=== PATIENT | male | born 1945 | race Caucasian/White ===

== ENCOUNTER 2019-12-28 13:15 | Inpatient (IN) | payer MEDICARE ==
[2019-12-28 20:55] LABS: Basophils # (Auto) 0.1 K/mm3 (0.0-0.1); Eosinophils # (Auto) 0.2 K/mm3 (0.0-0.4); Eosinophils % (Auto) 2.6 % (0.0-4.3); Hematocrit 44.3 % (35.5-45.6); Hemoglobin 15.3 gm/dl (11.8-15.2); Lymphocytes # (Auto) 2.1 K/mm3 (1.2-5.4); Lymphocytes % (Auto) 31.6 % (13.4-35.0); Mean Corpuscular HGB Conc 35 % (32-34); Mean Corpuscular Volume 91 fl (84-94); Monocytes # (Auto) 0.8 K/mm3 (0.0-0.8); Monocytes % (Auto) 11.7 % (0.0-7.3); Platelet Count 206 K/mm3 (140-440); Red Cell Distribution Width 14.1 % (13.2-15.2)
--- NOTE | 2019-12-28 21:20 | Consultation ---
History of Present Illness - Reason for Consult Consult date: 12/28/19 medical management Requesting physician: ANITA HUMPHRIES - History of Present Illness 74 YO Male with Cerebral Atherosclerosis, Vascular Dementia with Behavioral disturbance admitted to [facility] for Psychiatric stabilization. Consult placed by Dr. Humphries for medical management. No reported nursing events. Pt is pleasantly confused. No reports of pain. Past History Past Medical History: other Past Surgical History: No surgical history (See HPI reviewed), Other (See HPI) Social history: single. denies: smoking, alcohol abuse, IV drug use Family history: denies: no significant family history (Reviewed) Medications and Allergies Allergies Allergy/AdvReac Type Severity Reaction Status Date / Time No Known Allergies Allergy Unverified 12/28/19 13:41 Home Medications Medication Instructions Recorded Confirmed Last Taken Type B Complex W/Vitamin C 1 cap PO DAILY 12/28/19 12/31/19 Unknown History Isoniazid 300 mg PO DAILY 12/28/19 12/31/19 Unknown History Pyridoxine HCl (Vitamin B6) 100 mg PO HS 12/28/19 12/31/19 Unknown History [Vitamin B-6 200mg TAB ER] traZODone [Desyrel] 100 mg PO QHS 12/28/19 12/31/19 Unknown History Melatonin [Melatonin 5MG TAB] 5 mg PO QHS #30 tablet 01/06/20 Unknown Rx Mirtazapine [Remeron 15mg TAB] 15 mg PO QHS #30 tablet 01/06/20 Unknown Rx [place]-3 Fatty Acids/Fish Oil [Fish 2,000 mg PO BID #120 capsule 01/06/20 Unknown Rx Oil] QUEtiapine [SEROquel] 150 mg PO BID #60 tablet 01/06/20 Unknown Rx Valproic Acid [Depakene] 500 mg PO BID #60 capsule 01/06/20 Unknown Rx Active Meds: Active Medications Fish Oil (Fish Oil) 2,000 mg PO BID HANDY Fluoxetine HCl (Prozac) 10 mg PO QHS HANDY Melatonin (Melatonin) 5 mg PO QHS PRN PRN Reason: Sleep Olanzapine (Zyprexa) 5 mg PO QHS HANDY Trazodone HCl (Desyrel) 50 mg PO QHS HANDY Review of Systems ROS unobtainable: due to mental status Exam - Constitutional Vitals: Temp Pulse Resp BP Pulse Ox 98.5 F 73 18 133/76 95 12/28/19 16:00 12/28/19 16:00 12/28/19 16:00 12/28/19 16:00 12/28/19 16:00 General appearance: Present: no acute distress, well-nourished - EENT Eyes: Present: PERRL ENT: hearing intact, clear oral mucosa - Neck Neck: Present: supple, normal ROM - Respiratory Respiratory effort: normal Respiratory: bilateral: CTA - Cardiovascular Heart Sounds: Present: S1 & S2. Absent: rub, click - Extremities Extremities: pulses symmetrical, No edema Peripheral Pulses: within normal limits - Abdominal General gastrointestinal: Present: soft, non-tender, non-distended, normal bowel sounds Male genitourinary: Present: normal - Integumentary Integumentary: Present: clear, warm, dry - Musculoskeletal Musculoskeletal: gait normal, strength equal bilaterally - Neurologic Neurologic: CNII-XII intact, moves all extremities Results - Labs CBC & Chem 7: 12/28/19 20:35 12/28/19 20:35 Labs: Abnormal lab results 12/28/19 12/28/19 Range/Units 17:05 20:35 Hgb 15.3 H (11.8-15.2) gm/dl MCHC 35 H (32-34) % [place] % (Auto) 11.7 H (0.0-7.3) % POC Glucose 118 H (70-105) Assessment and Plan - Patient Problems (1) Vascular dementia with behavioral disturbance Status: Acute Plan to address problem: Verbal prompting, verbal redirection, benzodiazepine therapy as clinically indicated, supportive care. (2) Cerebral atherosclerosis Status: Acute Plan to address problem: Supportive care, continue medical management
[2019-12-28] MEDS: traZODone 50 MG TAB PO SCH (21:30)
[2019-12-28] MEDS: OMEGA-3 FATTY ACIDS/FISH OIL 1 GRAM CAP PO SCH (21:31)
[2019-12-28 21:43] LABS: Alanine Aminotransferase 43 units/L (7-56); Albumin 4.5 g/dL (3.9-5); BUN/Creatinine Ratio 22; Blood Urea Nitrogen 24 mg/dL (9-20); Calcium 9.3 mg/dL (8.4-10.2); Hemolysis Index 15
[2019-12-28] MEDS ORDERED: MELATONIN 5 MG TAB PO PRN (22:00)
[2019-12-28] MEDS ORDERED: FLUoxetine 10 MG TAB PO SCH (22:00)
--- NOTE | 2019-12-29 07:39 | History and Physical Report ---
GP History & Physical - History of Present Illness Date of admission: 12/28/19 Date of Examination: 12/29/19 Reason for Admission: Danger to self, Psychopathology interference History of Present Illness: HPI Patient is a 74-year-old male with past medical history of dementia disease due to Alzheimer's presented to [facility] emergency department due to increased behavioral disturbances while he was at a memory care facility of [facility] for about 4 to 5 months now. According to the notes it was reported that patient behavior has been worsening within the past 3 to 4 weeks but most recently patient has wandered into another patient's room and when staff try to redirect the patient patient immediately points to staff and has also been verbally aggressive towards other female residents at the same facility. Due to patient's history of dementia patient is a poor historian hence limited HPI staff also reports history of homicidal ideation towards staff at the facility PAST PSYCHIATRIC HISTORY: Diagnoses: None reported Suicide attempts or Self-harm behavior: None reported Prior psychiatric hospitalizations: None reported Substance Abuse history: None reported Previous psychiatric medications tried: Seroquel Outpatient treatment: Yes PAST MEDICAL HISTORY: Alzheimer's dementia Family Psychiatric History: None reported or documented SOCIAL HISTORY Marital Status: Living Arrangements: correction Employment Status: Retired Access to guns/weapons: None reported Education: History of Abuse: Legal History: REVIEW OF SYSTEMS ROS cannot be reliably obtained from the patient due to his confusion MENTAL STATUS EXAMINATION General Appearance and Behavior: Age appropriate, good hygiene, wearing appropriate clothes, good eye contact, cooperative polite with questioning. Cooperation: Participating Withdrawn Psychomotor Behavior: unremarkable and within normal limits Mood: Good, Affect and affective range: euphoric Thought Process: Loose associations Thought Content: Illogical, Speech: Normal volume, Regular rate and rhythm, Intellectual Functioning: Average Suicidal Ideation: Denies SI Homicidal Ideation: HI based on history Impulse Control: Impaired Insight and Judgment: Impaired Memory: impaired Attention: Normal, Distractible, Sustained attention intact, Sustained attention impaired, Divided attention intact and Divided attention impaired Orientation: Alert Assessment and Plan - Psychiatric problem (1) Vascular dementia with behavioral disturbance Current Visit: Yes Status: Acute Treatment Plan Seroquel 100mg BID Patient admitted for inpatient psychiatric evaluation, medication adjustment and close monitoring The patient's behavior, mood, sleep and appetite will be closely monitored. Patient enrolled in individual and group therapeutic sessions and encouraged to attend. Patient provided with a safe and structured environment. Patient's physical health needs will be addressed by the Hospitalist. Hospitalist Consulted Labs including CBC, CMP, Lipid profile and Hemoglobin A1C levels ordered for baseline reference Social Assessment will be completed and the Managing Principal will work with patient and family to ensure a suitable and safe disposition Medication adjustment will be made as clinically indicated Usual Wellness Advent/Preservation: - Start Trazodone 50 mg po QHS & 50 mg po QHS PRN between 10 PM & 2 AM for insomnia - Start Melatonin 5 mg po QHS to promote circadian rhythm - Start [place]-3 for brain health, reduce impulsivity, and as adjunctive treatment for mood disorder, continue upon discharge given overall benefits. - Start B1 prophylaxis with 200 mg po for 5 days The patient agreed on the treatment plan, understood the risk, benefit, alternative treatment, potential consequence of no treatment, and gave informed consent. Initial Certification Inpatient psych services: I certify that the inpatient psychiatric services are required for treatment that could reasonably be expected to improve the patient's condition. Estimated days: 7 Post hospital care: primary care provider, psychiatric provider Legal Status: Voluntary Patient Problems: Current Active Problems Cerebral atherosclerosis (Acute) Vascular dementia with behavioral disturbance (Acute) Reaction to Hospitalization: Accepting Medications and Allergies Allergies Allergy/AdvReac Type Severity Reaction Status Date / Time No Known Allergies Allergy Unverified 12/28/19 13:41 Home Medications Medication Instructions Recorded Confirmed Last Taken Type B Complex W/Vitamin C 1 cap PO DAILY 12/28/19 12/28/19 Unknown History Isoniazid 300 mg PO DAILY 12/28/19 12/28/19 Unknown History Pyridoxine HCl (Vitamin B6) 100 mg PO HS 12/28/19 12/28/19 Unknown History [Vitamin B-6 200mg TAB ER] QUEtiapine [SEROquel] 25 mg PO HS 12/28/19 12/28/19 Unknown History traZODone [Desyrel] 100 mg PO QHS 12/28/19 12/28/19 Unknown History Active Meds: Active Medications Fish Oil (Fish Oil) 2,000 mg PO BID [facility] Last Admin: 12/28/19 21:31 Dose: 2,000 mg Documented by: Fluoxetine HCl (Prozac) 10 mg PO QHS [facility] Last Admin: 12/28/19 21:32 Dose: 10 mg Documented by: Melatonin (Melatonin) 5 mg PO QHS PRN PRN Reason: Sleep Last Admin: 12/28/19 21:33 Dose: 5 mg Documented by: Olanzapine (Zyprexa) 5 mg PO QHS [facility] Last Admin: 12/28/19 21:32 Dose: 5 mg Documented by: Trazodone HCl (Desyrel) 50 mg PO QHS [facility] Last Admin: 12/28/19 21:30 Dose: 50 mg Documented by: Results - Results Labs/Vitals: Laboratory Last Values WBC 6.8 K/mm3 (4.5-11.0) 12/28/19 20:35 RBC 4.90 M/mm3 (3.65-5.03) 12/28/19 20:35 Hgb 15.3 gm/dl (11.8-15.2) H 12/28/19 20:35 Hct 44.3 % (35.5-45.6) 12/28/19 20:35 MCV 91 fl (84-94) 12/28/19 20:35 MCH 31 pg (28-32) 12/28/19 20:35 MCHC 35 % (32-34) H 12/28/19 20:35 RDW 14.1 % (13.2-15.2) 12/28/19 20:35 Plt Count 206 K/mm3 (140-440) 12/28/19 20:35 Lymph % (Auto) 31.6 % (13.4-35.0) 12/28/19 20:35 [place] % (Auto) 11.7 % (0.0-7.3) H 12/28/19 20:35 Eos % (Auto) 2.6 % (0.0-4.3) 12/28/19 20:35 Baso % (Auto) 1.0 % (0.0-1.8) 12/28/19 20:35 Lymph # (Auto) 2.1 K/mm3 (1.2-5.4) 12/28/19 20:35 [place] # (Auto) 0.8 K/mm3 (0.0-0.8) 12/28/19 20:35 Eos # (Auto) 0.2 K/mm3 (0.0-0.4) 12/28/19 20:35 Baso # (Auto) 0.1 K/mm3 (0.0-0.1) 12/28/19 20:35 Seg Neutrophils % 53.1 % (40.0-70.0) 12/28/19 20:35 Seg Neutrophils # 3.6 K/mm3 (1.8-7.7) 12/28/19 20:35 Sodium 140 mmol/L (137-145) 12/28/19 20:35 Potassium 3.7 mmol/L (3.6-5.0) 12/28/19 20:35 Chloride 103.0 mmol/L (98-107) 12/28/19 20:35 Carbon Dioxide 23 mmol/L (22-30) 12/28/19 20:35 Anion Gap 18 mmol/L 12/28/19 20:35 BUN 24 mg/dL (9-20) H 12/28/19 20:35 Creatinine 1.1 mg/dL (0.8-1.3) 12/28/19 20:35 Estimated GFR > 60 ml/min 12/28/19 20:35 BUN/Creatinine Ratio 22 % 12/28/19 20:35 Glucose 119 mg/dL (75-100) H 12/28/19 20:35 POC Glucose 118 (70-105) H 12/28/19 17:05 Calcium 9.3 mg/dL (8.4-10.2) 12/28/19 20:35 Total Bilirubin 0.70 mg/dL (0.1-1.2) 12/28/19 20:35 AST 40 units/L (5-40) 12/28/19 20:35 ALT 43 units/L (7-56) 12/28/19 20:35 Alkaline Phosphatase 65 units/L (35-129) 12/28/19 20:35 Total Protein 7.4 g/dL (6.3-8.2) 12/28/19 20:35 Albumin 4.5 g/dL (3.9-5) 12/28/19 20:35 Albumin/Globulin Ratio 1.6 % 12/28/19 20:35 TSH 3.710 mlU/mL (0.270-4.200) 12/28/19 20:35 Last Vital Signs Temp 97.9 F 12/28/19 19:36 Pulse 71 12/28/19 19:36 Resp 20 12/28/19 19:36 BP 132/70 12/28/19 19:36 Pulse Ox 94 12/28/19 19:36 Physical Examination - Constitutional Vitals: Vital Signs Temp Pulse Resp BP Pulse Ox 97.9 F 71 20 132/70 94 12/28/19 19:36 12/28/19 19:36 12/28/19 19:36 12/28/19 19:36 12/28/19 19:36 Temperature -Last 24 Hours Temperature 97.9 F Temperature 98.5 F Mental Status Exam - Vital signs Last Vital Signs Temp 97.9 F 12/28/19 19:36 Pulse 71 12/28/19 19:36 Resp 20 12/28/19 19:36 BP 132/70 12/28/19 19:36 Pulse Ox 94 12/28/19 19:36 Assessment and Plan - Psychiatric problem (1) Vascular dementia with behavioral disturbance Current Visit: Yes Status: Acute Physician Certification - Certification Statement Physician Certification Statement: This is an acknowledgement statement that FIDE RUIZ is a 74 year old M who requires inpatient psychiatric admission for treatment which could itzel sonably be expected to improve the patient's condition for Estimated period of time patient will need to remain in the hospital: [ ] Plan for post-hospital care: [ ]
[2019-12-29] MEDS: OMEGA-3 FATTY ACIDS/FISH OIL 1 GRAM CAP PO SCH ×2 (11:57→21:13)
[2019-12-29] MEDS: QUEtiapine 25 MG TAB PO SCH ×2 (11:57→21:14)
[2019-12-29 16:14] LABS: Chol/HDL Ratio 3.62 %; HDL Cholesterol 56 mg/dL (40-59); LDL Cholesterol,Direct 142 mg/dL (50-130)
[2019-12-29] MEDS: VALPROIC ACID 250 MG CAP PO SCH (21:14)
[2019-12-29] MEDS: traZODone 50 MG TAB PO SCH (21:15)
--- NOTE | 2019-12-30 07:42 | Progress Note ---
Subjective Date of service: 12/30/19 Principal diagnosis: MHE Subjective Comment: Per Felix Nurse: Last evening the patient was busy wandering the unit. He checked all the doors multiple times. Patient went into a peers room and scared his peer. Patient is resistant to redirection. He becomes angry when redirected. He was touching his peers, doors, pictures, anything hanging on the wall, and digging in the garbage. Patient would not listen and began to throw things at the tech. He wandered the unit and lay down to sleep around 2300. He slept 1 1/2 hours and awakened to wander the unit and check all the doors again. Will continue to monitor patient for safety. Psych Progress Mr Castrejon seen in consultation room, look at picture on the wall, for a few minutes he did not respond to me and when he did, he appears to be talking about knowledge, [employer] and very loose in association of his thought process Reason to continue inpatient psychiatric hospitalization: Insomnia reported, confusion is due to dementia, Seroquel increased to 150mg QHS, Remeron added for sleep, will continue to observe. REVIEW OF SYSTEMS ROS cannot be reliably obtained from the patient due to his confusion MENTAL STATUS EXAMINATION General Appearance and Behavior: Age appropriate, good hygiene, wearing appropriate clothes, good eye contact, cooperative polite with questioning. Cooperation: Participating Withdrawn Psychomotor Behavior: unremarkable and within normal limits Mood: Good, Affect and affective range: euphoric Thought Process: Loose associations Thought Content: Illogical, Speech: Normal volume, Regular rate and rhythm, Intellectual Functioning: Average Suicidal Ideation: Denies SI Homicidal Ideation: HI based on history Impulse Control: Impaired Insight and Judgment: Impaired Memory: impaired Attention: Divided attention impaired Orientation: Alert Assessment and Plan - Psychiatric problem (1) Vascular dementia with behavioral disturbance Current Visit: Yes Status: Acute Treatment Plan Medication changes, Seroquel 100mg, 150 mg QHS, Remeron 15mg QHS for insomnia and Melatonin Patient admitted for inpatient psychiatric evaluation, medication adjustment and close monitoring The patient's behavior, mood, sleep and appetite will be closely monitored. Patient enrolled in individual and group therapeutic sessions and encouraged to attend. Patient provided with a safe and structured environment. Patient's physical health needs will be addressed by the Hospitalist. Hospitalist Consulted Labs including CBC, CMP, Lipid profile and Hemoglobin A1C levels ordered for baseline reference Social Assessment will be completed and the Country Printer Apprentice will work with kristen wetzel and family to ensure a suitable and safe disposition Medication adjustment will be made as clinically indicated Usual Wellness Synagogue/Preservation: - Start Trazodone 50 mg po QHS & 50 mg po QHS PRN between 10 PM & 2 AM for insomnia - Start Melatonin 5 mg po QHS to promote circadian rhythm - Start [place]-3 for brain health, reduce impulsivity, and as adjunctive treatment for mood disorder, continue upon discharge given overall benefits. - Start B1 prophylaxis with 200 mg po for 5 days The patient agreed on the treatment plan, understood the risk, benefit, alternative treatment, potential consequence of no treatment, and gave informed consent. Initial Certification Inpatient psych services: I certify that the inpatient psychiatric services are required for treatment that could reasonably be expected to improve the patient's condition. Estimated days: 6 Post hospital care: primary care provider, psychiatric provider Legal Status: Voluntary Patient Problems: Current Active Problems Cerebral atherosclerosis (Acute) Vascular dementia with behavioral disturbance (Acute) Reaction to Hospitalization: Accepting Assessment and Plan - Patient Problems (1) Vascular dementia with behavioral disturbance Current Visit: Yes Status: Acute Medications and Allergies Allergies Allergy/AdvReac Type Severity Reaction Status Date / Time No Known Allergies Allergy Unverified 12/28/19 13:41 Home Medications Medication Instructions Recorded Confirmed Last Taken Type B Complex W/Vitamin C 1 cap PO DAILY 12/28/19 12/28/19 Unknown History Isoniazid 300 mg PO DAILY 12/28/19 12/28/19 Unknown History Pyridoxine HCl (Vitamin B6) 100 mg PO HS 12/28/19 12/28/19 Unknown History [Vitamin B-6 200mg TAB ER] QUEtiapine [SEROquel] 25 mg PO HS 12/28/19 12/28/19 Unknown History traZODone [Desyrel] 100 mg PO QHS 12/28/19 12/28/19 Unknown History Active Meds: Active Medications Fish Oil (Fish Oil) 2,000 mg PO BID [facility] Last Admin: 12/29/19 21:13 Dose: 2,000 mg Documented by: Melatonin (Melatonin) 5 mg PO QHS PRN PRN Reason: Sleep Last Admin: 12/28/19 21:33 Dose: 5 mg Documented by: Quetiapine Fumarate (Seroquel) 100 mg PO BID [facility] Last Admin: 12/29/19 21:14 Dose: 100 mg Documented by: Trazodone HCl (Desyrel) 50 mg PO QHS [facility] Last Admin: 12/29/19 21:15 Dose: 50 mg Documented by: Valproic Acid (Depakene) 250 mg PO BID [facility] Last Admin: 12/29/19 21:14 Dose: 250 mg Documented by: Results - Results Labs/Vitals: Laboratory Last Values WBC 6.8 K/mm3 (4.5-11.0) 12/28/19 20:35 RBC 4.90 M/mm3 (3.65-5.03) 12/28/19 20:35 Hgb 15.3 gm/dl (11.8-15.2) H 12/28/19 20:35 Hct 44.3 % (35.5-45.6) 12/28/19 20:35 MCV 91 fl (84-94) 12/28/19 20:35 MCH 31 pg (28-32) 12/28/19 20:35 MCHC 35 % (32-34) H 12/28/19 20:35 RDW 14.1 % (13.2-15.2) 12/28/19 20:35 Plt Count 206 K/mm3 (140-440) 12/28/19 20:35 Lymph % (Auto) 31.6 % (13.4-35.0) 12/28/19 20:35 [place] % (Auto) 11.7 % (0.0-7.3) H 12/28/19 20:35 Eos % (Auto) 2.6 % (0.0-4.3) 12/28/19 20:35 Baso % (Auto) 1.0 % (0.0-1.8) 12/28/19 20:35 Lymph # (Auto) 2.1 K/mm3 (1.2-5.4) 12/28/19 20:35 [place] # (Auto) 0.8 K/mm3 (0.0-0.8) 12/28/19 20:35 Eos # (Auto) 0.2 K/mm3 (0.0-0.4) 12/28/19 20:35 Baso # (Auto) 0.1 K/mm3 (0.0-0.1) 12/28/19 20:35 Seg Neutrophils % 53.1 % (40.0-70.0) 12/28/19 20:35 Seg Neutrophils # 3.6 K/mm3 (1.8-7.7) 12/28/19 20:35 Sodium 140 mmol/L (137-145) 12/28/19 20:35 Potassium 3.7 mmol/L (3.6-5.0) 12/28/19 20:35 Chloride 103.0 mmol/L (98-107) 12/28/19 20:35 Carbon Dioxide 23 mmol/L (22-30) 12/28/19 20:35 Anion Gap 18 mmol/L 12/28/19 20:35 BUN 24 mg/dL (9-20) H 12/28/19 20:35 Creatinine 1.1 mg/dL (0.8-1.3) 12/28/19 20:35 Estimated GFR > 60 ml/min 12/28/19 20:35 BUN/Creatinine Ratio 22 % 12/28/19 20:35 Glucose 119 mg/dL (75-100) H 12/28/19 20:35 POC Glucose 118 (70-105) H 12/28/19 17:05 Hemoglobin A1c 6.2 % (4-6) H 12/28/19 20:35 Calcium 9.3 mg/dL (8.4-10.2) 12/28/19 20:35 Total Bilirubin 0.70 mg/dL (0.1-1.2) 12/28/19 20:35 AST 40 units/L (5-40) 12/28/19 20:35 ALT 43 units/L (7-56) 12/28/19 20:35 Alkaline Phosphatase 65 units/L (35-129) 12/28/19 20:35 Total Protein 7.4 g/dL (6.3-8.2) 12/28/19 20:35 Albumin 4.5 g/dL (3.9-5) 12/28/19 20:35 Albumin/Globulin Ratio 1.6 % 12/28/19 20:35 Triglycerides 105 mg/dL (2-149) 12/28/19 20:35 Cholesterol 203 mg/dL (50-199) H 12/28/19 20:35 LDL Cholesterol Direct 142 mg/dL (50-130) H 12/28/19 20:35 HDL Cholesterol 56 mg/dL (40-59) 12/28/19 20:35 Cholesterol/HDL Ratio 3.62 % 12/28/19 20:35 TSH 3.710 mlU/mL (0.270-4.200) 12/28/19 20:35 Last Vital Signs Temp 97.5 F L 12/29/19 19:53 Pulse 63 12/29/19 19:53 Resp 20 12/29/19 19:53 BP 124/89 12/29/19 19:53 Pulse Ox 97 12/29/19 19:53
[2019-12-30] MEDS: VALPROIC ACID 250 MG CAP PO SCH ×2 (09:11→21:00)
[2019-12-30] MEDS: OMEGA-3 FATTY ACIDS/FISH OIL 1 GRAM CAP PO SCH ×2 (09:12→21:00)
[2019-12-30] MEDS ORDERED: QUEtiapine 100 MG TAB PO SCH ×3 (10:00→22:00)
[2019-12-30] MEDS: MIRTAZAPINE 15 MG TAB PO SCH (21:00)
[2019-12-30] MEDS: MELATONIN 5 MG TAB PO SCH (21:00)
[2019-12-30] MEDS ORDERED: QUEtiapine 50 MG, QUEtiapine 100 MG PO SCH (22:00)
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
[2019-12-31] MEDS ORDERED: HALOPERIDOL LACTATE 5 MG/1 ML INJ IM PRN (08:34)
[2019-12-31] MEDS ORDERED: LORazepam 2 MG/ML VIAL IM PRN (08:34)
[2019-12-31] MEDS: VALPROIC ACID 250 MG CAP PO SCH ×2 (09:25→21:20)
[2019-12-31] MEDS: QUEtiapine 100 MG TAB PO SCH ×2 (09:25→21:21)
[2019-12-31] MEDS: OMEGA-3 FATTY ACIDS/FISH OIL 1 GRAM CAP PO SCH ×2 (09:25→21:21)
[2019-12-31] MEDS: MIRTAZAPINE 15 MG TAB PO SCH (21:21)
[2019-12-31] MEDS: MELATONIN 5 MG TAB PO SCH (21:25)
--- NOTE | 2020-01-01 08:33 | Progress Note ---
Subjective Date of service: 01/01/20 Principal diagnosis: Dementia w/Behavioral Disturbance Subjective Comment: During my interview with the patient this morning, he is sitting on side of the bed. He is confused. His speech is nonsensical. The patient looks as he's been crying. He says "my slept on this side" when asked how did he sleep. The patient then started mumbling about something. His speech was incomprehensible at that time. Reason to continue inpatient psychiatric hospitalization: Behavioral disturbances reported; aggression, up and down moods, altercations REVIEW OF SYSTEMS ROS cannot be reliably obtained from the patient due to his confusion MENTAL STATUS EXAMINATION General Appearance and Behavior: Age appropriate, good hygiene, wearing appropriate clothes, fair eye contact, cooperative polite with questioning. Cooperation: Participating, Withdrawn Psychomotor Behavior: unremarkable and within normal limits Mood: okay Affect and affective range: flat Thought Process: Impaired Thought Content: Illogical, Speech: Normal volume, Regular rate and rhythm, Suicidal Ideation: Denies SI Homicidal Ideation: HI Impulse Control: Impaired Insight and Judgment: Impaired Memory: impaired Attention: Divided attention impaired Orientation: Alert Assessment and Plan (1) Dementia with Behavioral Disturbance Current Visit: Yes Status: Acute Treatment Plan Patient admitted for inpatient psychiatric evaluation, medication adjustment and close monitoring The patient's behavior, mood, sleep and appetite will be closely monitored. Patient enrolled in individual and group therapeutic sessions and encouraged to attend. Patient provided with a safe and structured environment. Patient's physical health needs will be addressed by the Hospitalist. Hospitalist Consulted Labs including CBC, CMP, Lipid profile and Hemoglobin A1C levels ordered for baseline reference Increase Depakote DR 500mg po BID Social Assessment will be completed and the Gravel Weigher will work with patient and family to ensure a suitable and safe disposition Medication adjustment will be made as clinically indicated Usual Wellness Jewish/Preservation: - Start Trazodone 50 mg po QHS & 50 mg po QHS PRN between 10 PM & 2 AM for insomnia - Start Melatonin 5 mg po QHS to promote circadian rhythm - Start [place]-3 for brain health, reduce impulsivity, and as adjunctive treatment for mood disorder, continue upon discharge given overall benefits. - Start B1 prophylaxis with 200 mg po for 5 days The patient agreed on the treatment plan, understood the risk, benefit, alternative treatment, potential consequence of no treatment, and gave informed consent. Estimated days: 4 Post hospital care: primary care provider, psychiatric provider Medications and Allergies Allergies Allergy/AdvReac Type Severity Reaction Status Date / Time No Known Allergies Allergy Unverified 12/28/19 13:41 Home Medications Medication Instructions Recorded Confirmed Last Taken Type B Complex W/Vitamin C 1 cap PO DAILY 12/28/19 12/31/19 Unknown History Isoniazid 300 mg PO DAILY 12/28/19 12/31/19 Unknown History Pyridoxine HCl (Vitamin B6) 100 mg PO HS 12/28/19 12/31/19 Unknown History [Vitamin B-6 200mg TAB ER] QUEtiapine [SEROquel] 25 mg PO HS 12/28/19 12/31/19 Unknown History traZODone [Desyrel] 100 mg PO QHS 12/28/19 12/31/19 Unknown History Active Meds: Active Medications Fish Oil (Fish Oil) 2,000 mg PO BID [facility] Last Admin: 12/31/19 21:21 Dose: 2,000 mg Documented by: Haloperidol Lactate (Haldol) 5 mg IM ONCE PRN PRN Reason: Agitation Lorazepam (Ativan) 2 mg IM Q4HR PRN PRN Reason: Agitation Melatonin (Melatonin) 5 mg PO QHS [facility] Last Admin: 12/31/19 21:25 Dose: 5 mg Documented by: Mirtazapine (Remeron) 15 mg PO QHS [facility] Last Admin: 12/31/19 21:21 Dose: 15 mg Documented by: Quetiapine Fumarate (Seroquel) 150 mg PO BID [facility] Last Admin: 12/31/19 21:21 Dose: 150 mg Documented by: Valproic Acid (Depakene) 250 mg PO BID [facility] Last Admin: 12/31/19 21:20 Dose: 250 mg Documented by: Results - Results Labs/Vitals: Laboratory Last Values WBC 6.8 K/mm3 (4.5-11.0) 12/28/19 20:35 RBC 4.90 M/mm3 (3.65-5.03) 12/28/19 20:35 Hgb 15.3 gm/dl (11.8-15.2) H 12/28/19 20:35 Hct 44.3 % (35.5-45.6) 12/28/19 20:35 MCV 91 fl (84-94) 12/28/19 20:35 MCH 31 pg (28-32) 12/28/19 20:35 MCHC 35 % (32-34) H 12/28/19 20:35 RDW 14.1 % (13.2-15.2) 12/28/19 20:35 Plt Count 206 K/mm3 (140-440) 12/28/19 20:35 Lymph % (Auto) 31.6 % (13.4-35.0) 12/28/19 20:35 [place] % (Auto) 11.7 % (0.0-7.3) H 12/28/19 20:35 Eos % (Auto) 2.6 % (0.0-4.3) 12/28/19 20:35 Baso % (Auto) 1.0 % (0.0-1.8) 12/28/19 20:35 Lymph # (Auto) 2.1 K/mm3 (1.2-5.4) 12/28/19 20:35 [place] # (Auto) 0.8 K/mm3 (0.0-0.8) 12/28/19 20:35 Eos # (Auto) 0.2 K/mm3 (0.0-0.4) 12/28/19 20:35 Baso # (Auto) 0.1 K/mm3 (0.0-0.1) 12/28/19 20:35 Seg Neutrophils % 53.1 % (40.0-70.0) 12/28/19 20:35 Seg Neutrophils # 3.6 K/mm3 (1.8-7.7) 12/28/19 20:35 Sodium 140 mmol/L (137-145) 12/28/19 20:35 Potassium 3.7 mmol/L (3.6-5.0) 12/28/19 20:35 Chloride 103.0 mmol/L (98-107) 12/28/19 20:35 Carbon Dioxide 23 mmol/L (22-30) 12/28/19 20:35 Anion Gap 18 mmol/L 12/28/19 20:35 BUN 24 mg/dL (9-20) H 12/28/19 20:35 Creatinine 1.1 mg/dL (0.8-1.3) 12/28/19 20:35 Estimated GFR > 60 ml/min 12/28/19 20:35 BUN/Creatinine Ratio 22 % 12/28/19 20:35 Glucose 119 mg/dL (75-100) H 12/28/19 20:35 POC Glucose 118 (70-105) H 12/28/19 17:05 Hemoglobin A1c 6.2 % (4-6) H 12/28/19 20:35 Calcium 9.3 mg/dL (8.4-10.2) 12/28/19 20:35 Total Bilirubin 0.70 mg/dL (0.1-1.2) 12/28/19 20:35 AST 40 units/L (5-40) 12/28/19 20:35 ALT 43 units/L (7-56) 12/28/19 20:35 Alkaline Phosphatase 65 units/L (35-129) 12/28/19 20:35 Total Protein 7.4 g/dL (6.3-8.2) 12/28/19 20:35 Albumin 4.5 g/dL (3.9-5) 12/28/19 20:35 Albumin/Globulin Ratio 1.6 % 12/28/19 20:35 Triglycerides 105 mg/dL (2-149) 12/28/19 20:35 Cholesterol 203 mg/dL (50-199) H 12/28/19 20:35 LDL Cholesterol Direct 142 mg/dL (50-130) H 12/28/19 20:35 HDL Cholesterol 56 mg/dL (40-59) 12/28/19 20:35 Cholesterol/HDL Ratio 3.62 % 12/28/19 20:35 TSH 3.710 mlU/mL (0.270-4.200) 12/28/19 20:35 Last Vital Signs Temp 98.1 F 12/31/19 22:00 Pulse 74 12/31/19 22:00 Resp 18 12/31/19 22:00 BP 118/74 12/31/19 22:00 Pulse Ox 95 12/31/19 22:00
[2020-01-01] MEDS: VALPROIC ACID 250 MG CAP PO SCH ×3 (09:30→22:16)
[2020-01-01] MEDS: QUEtiapine 100 MG TAB PO SCH ×2 (09:31→22:18)
[2020-01-01] MEDS: OMEGA-3 FATTY ACIDS/FISH OIL 1 GRAM CAP PO SCH ×2 (09:31→22:16)
[2020-01-01] MEDS: MIRTAZAPINE 15 MG TAB PO SCH (22:19)
[2020-01-01] MEDS: MELATONIN 5 MG TAB PO SCH (22:20)
[2020-01-02] MEDS: VALPROIC ACID 250 MG CAP PO SCH ×2 (11:08→21:17)
[2020-01-02] MEDS: OMEGA-3 FATTY ACIDS/FISH OIL 1 GRAM CAP PO SCH ×2 (11:09→21:16)
[2020-01-02] MEDS: QUEtiapine 100 MG TAB PO SCH ×2 (11:09→21:17)
--- NOTE | 2020-01-02 13:23 | Progress Note ---
Subjective Date of service: 01/02/20 Principal diagnosis: Dementia w/Behavioral Disturbance Subjective Comment: During my interview with the patient this morning, he is sitting on side of the bed. He is confused. His speech is nonsensical. He says "I'm okay" when asked. When asking him other questions, he just stared as me as I was speaking. Reason to continue inpatient psychiatric hospitalization: The patient has episodes of behavioral disturbances with aggression REVIEW OF SYSTEMS ROS cannot be reliably obtained from the patient due to his confusion MENTAL STATUS EXAMINATION General Appearance and Behavior: Age appropriate, good hygiene, wearing appropriate clothes, fair eye contact, cooperative polite with questioning. Cooperation: Uncooperative Psychomotor Behavior: unremarkable and within normal limits Mood: okay Affect and affective range: flat Thought Process: Impaired Thought Content: Illogical, Speech: Normal volume, Regular rate and rhythm, Suicidal Ideation: Denies SI Homicidal Ideation: HI Impulse Control: Impaired Insight and Judgment: Impaired Memory: impaired Attention: Divided attention impaired Orientation: Alert Assessment and Plan (1) Dementia with Behavioral Disturbance Current Visit: Yes Status: Acute Treatment Plan Patient admitted for inpatient psychiatric evaluation, medication adjustment and close monitoring The patient's behavior, mood, sleep and appetite will be closely monitored. Patient enrolled in individual and group therapeutic sessions and encouraged to attend. Patient provided with a safe and structured environment. Patient's physical health needs will be addressed by the Hospitalist. Hospitalist Consulted Labs including CBC, CMP, Lipid profile and Hemoglobin A1C levels ordered for baseline reference No changes today Social Assessment will be completed and the Mail Processing Associate will work with patient and family to ensure a suitable and safe disposition Medication adjustment will be made as clinically indicated Usual Wellness Zoroastrian/Preservation: - Start Trazodone 50 mg po QHS & 50 mg po QHS PRN between 10 PM & 2 AM for insomnia - Start Melatonin 5 mg po QHS to promote circadian rhythm - Start [place]-3 for brain health, reduce impulsivity, and as adjunctive treatment for mood disorder, continue upon discharge given overall benefits. - Start B1 prophylaxis with 200 mg po for 5 days The patient agreed on the treatment plan, understood the risk, benefit, alternative treatment, potential consequence of no treatment, and gave informed consent. Estimated days: 4 Post hospital care: primary care provider, psychiatric provider Medications and Allergies Allergies Allergy/AdvReac Type Severity Reaction Status Date / Time No Known Allergies Allergy Unverified 12/28/19 13:41 Home Medications Medication Instructions Recorded Confirmed Last Taken Type B Complex W/Vitamin C 1 cap PO DAILY 12/28/19 12/31/19 Unknown History Isoniazid 300 mg PO DAILY 12/28/19 12/31/19 Unknown History Pyridoxine HCl (Vitamin B6) 100 mg PO 12/28/19 12/31/19 Unknown History [Vitamin B-6 200mg TAB ER] QUEtiapine [SEROquel] 25 mg PO HS 12/28/19 12/31/19 Unknown History traZODone [Desyrel] 100 mg PO QHS 12/28/19 12/31/19 Unknown History Active Meds: Active Medications Fish Oil (Fish Oil) 2,000 mg PO BID [facility] Last Admin: 01/02/20 11:09 Dose: 2,000 mg Documented by: Haloperidol Lactate (Haldol) 5 mg IM ONCE PRN PRN Reason: Agitation Lorazepam (Ativan) 2 mg IM Q4HR PRN PRN Reason: Agitation Melatonin (Melatonin) 5 mg PO QHS [facility] Last Admin: 01/01/20 22:20 Dose: 5 mg Documented by: Mirtazapine (Remeron) 15 mg PO QHS [facility] Last Admin: 01/01/20 22:19 Dose: 15 mg Documented by: Quetiapine Fumarate (Seroquel) 150 mg PO BID [facility] Last Admin: 01/02/20 11:09 Dose: 150 mg Documented by: Valproic Acid (Depakene) 500 mg PO BID [facility] Last Admin: 01/02/20 11:08 Dose: 500 mg Documented by: Results - Results Labs/Vitals: Laboratory Last Values WBC 6.8 K/mm3 (4.5-11.0) 12/28/19 20:35 RBC 4.90 M/mm3 (3.65-5.03) 12/28/19 20:35 Hgb 15.3 gm/dl (11.8-15.2) H 12/28/19 20:35 Hct 44.3 % (35.5-45.6) 12/28/19 20:35 MCV 91 fl (84-94) 12/28/19 20:35 MCH 31 pg (28-32) 12/28/19 20:35 MCHC 35 % (32-34) H 12/28/19 20:35 RDW 14.1 % (13.2-15.2) 12/28/19 20:35 Plt Count 206 K/mm3 (140-440) 12/28/19 20:35 Lymph % (Auto) 31.6 % (13.4-35.0) 12/28/19 20:35 [place] % (Auto) 11.7 % (0.0-7.3) H 12/28/19 20:35 Eos % (Auto) 2.6 % (0.0-4.3) 12/28/19 20:35 Baso % (Auto) 1.0 % (0.0-1.8) 12/28/19 20:35 Lymph # (Auto) 2.1 K/mm3 (1.2-5.4) 12/28/19 20:35 [place] # (Auto) 0.8 K/mm3 (0.0-0.8) 12/28/19 20:35 Eos # (Auto) 0.2 K/mm3 (0.0-0.4) 12/28/19 20:35 Baso # (Auto) 0.1 K/mm3 (0.0-0.1) 12/28/19 20:35 Seg Neutrophils % 53.1 % (40.0-70.0) 12/28/19 20:35 Seg Neutrophils # 3.6 K/mm3 (1.8-7.7) 12/28/19 20:35 Sodium 140 mmol/L (137-145) 12/28/19 20:35 Potassium 3.7 mmol/L (3.6-5.0) 12/28/19 20:35 Chloride 103.0 mmol/L (98-107) 12/28/19 20:35 Carbon Dioxide 23 mmol/L (22-30) 12/28/19 20:35 Anion Gap 18 mmol/L 12/28/19 20:35 BUN 24 mg/dL (9-20) H 12/28/19 20:35 Creatinine 1.1 mg/dL (0.8-1.3) 12/28/19 20:35 Estimated GFR > 60 ml/min 12/28/19 20:35 BUN/Creatinine Ratio 22 % 12/28/19 20:35 Glucose 119 mg/dL (75-100) H 12/28/19 20:35 POC Glucose 118 (70-105) H 12/28/19 17:05 Hemoglobin A1c 6.2 % (4-6) H 12/28/19 20:35 Calcium 9.3 mg/dL (8.4-10.2) 12/28/19 20:35 Total Bilirubin 0.70 mg/dL (0.1-1.2) 12/28/19 20:35 AST 40 units/L (5-40) 12/28/19 20:35 ALT 43 units/L (7-56) 12/28/19 20:35 Alkaline Phosphatase 65 units/L (35-129) 12/28/19 20:35 Total Protein 7.4 g/dL (6.3-8.2) 12/28/19 20:35 Albumin 4.5 g/dL (3.9-5) 12/28/19 20:35 Albumin/Globulin Ratio 1.6 % 12/28/19 20:35 Triglycerides 105 mg/dL (2-149) 12/28/19 20:35 Cholesterol 203 mg/dL (50-199) H 12/28/19 20:35 LDL Cholesterol Direct 142 mg/dL (50-130) H 12/28/19 20:35 HDL Cholesterol 56 mg/dL (40-59) 12/28/19 20:35 Cholesterol/HDL Ratio 3.62 % 12/28/19 20:35 TSH 3.710 mlU/mL (0.270-4.200) 12/28/19 20:35 Last Vital Signs Temp 98.6 F 01/01/20 22:00 Pulse 89 01/01/20 22:00 Resp 20 01/01/20 22:00 BP 132/82 01/01/20 22:00 Pulse Ox 96 01/01/20 22:00
[2020-01-02] MEDS: MELATONIN 5 MG TAB PO SCH (21:18)
[2020-01-02] MEDS: MIRTAZAPINE 15 MG TAB PO SCH (21:18)
--- NOTE | 2020-01-03 11:59 | Progress Note ---
Subjective Date of service: 01/03/20 Principal diagnosis: Dementia w/Behavioral Disturbance Subjective Comment: During my interview with the patient this morning, he is sitting on side of the bed. He is confused. He says he is "better." He doesn't answer when asking about hallucinations. But when asked about SI/HI, he states "I don't want to hurt nobody." Reason to continue inpatient psychiatric hospitalization: The patient is improving, has episodes of behavioral disturbances with aggression. Will continue to treat and observe for effectiveness of medication. REVIEW OF SYSTEMS ROS cannot be reliably obtained from the patient due to his confusion MENTAL STATUS EXAMINATION General Appearance and Behavior: Age appropriate, good hygiene, wearing appropriate clothes, fair eye contact, cooperative polite with questioning. Cooperation: Uncooperative Psychomotor Behavior: unremarkable and within normal limits Mood: better Affect and affective range: flat Thought Process: Impaired Thought Content: Illogical, Speech: Normal volume, Regular rate and rhythm, Suicidal Ideation: Denies SI Homicidal Ideation: HI Impulse Control: Impaired Insight and Judgment: Impaired Memory: impaired Attention: Divided attention impaired Orientation: Alert Assessment and Plan (1) Dementia with Behavioral Disturbance Current Visit: Yes Status: Acute Treatment Plan Patient admitted for inpatient psychiatric evaluation, medication adjustment and close monitoring The patient's behavior, mood, sleep and appetite will be closely monitored. Patient enrolled in individual and group therapeutic sessions and encouraged to attend. Patient provided with a safe and structured environment. Patient's physical health needs will be addressed by the Hospitalist. Hospitalist Consulted Labs including CBC, CMP, Lipid profile and Hemoglobin A1C levels ordered for baseline reference Valproate level 01/04/20 Social Assessment will be completed and the Financial Advocate will work with patient and family to ensure a suitable and safe disposition Medication adjustment will be made as clinically indicated No changes today Usual Wellness Pentecostal/Preservation: - Start Trazodone 50 mg po QHS & 50 mg po QHS PRN between 10 PM & 2 AM for insomnia - Start Melatonin 5 mg po QHS to promote circadian rhythm - Start [place]-3 for brain health, reduce impulsivity, and as adjunctive treatment for mood disorder, continue upon discharge given overall benefits. - Start B1 prophylaxis with 200 mg po for 5 days The patient agreed on the treatment plan, understood the risk, benefit, alternative treatment, potential consequence of no treatment, and gave informed consent. Estimated days: 4 Post hospital care: primary care provider, psychiatric provider Medications and Allergies Allergies Allergy/AdvReac Type Severity Reaction Status Date / Time No Known Allergies Allergy Unverified 12/28/19 13:41 Home Medications Medication Instructions Recorded Confirmed Last Taken Type B Complex W/Vitamin C 1 cap PO DAILY 12/28/19 12/31/19 Unknown History Isoniazid 300 mg PO DAILY 12/28/19 12/31/19 Unknown History Pyridoxine HCl (Vitamin B6) 100 mg PO HS 12/28/19 12/31/19 Unknown History [Vitamin B-6 200mg TAB ER] QUEtiapine [SEROquel] 25 mg PO HS 12/28/19 12/31/19 Unknown History traZODone [Desyrel] 100 mg PO QHS 12/28/19 12/31/19 Unknown History Active Meds: Active Medications Fish Oil (Fish Oil) 2,000 mg PO BID [facility] Last Admin: 01/02/20 21:16 Dose: 2,000 mg Documented by: Haloperidol Lactate (Haldol) 5 mg IM ONCE PRN PRN Reason: Agitation Lorazepam (Ativan) 2 mg IM Q4HR PRN PRN Reason: Agitation Melatonin (Melatonin) 5 mg PO QHS [facility] Last Admin: 01/02/20 21:18 Dose: 5 mg Documented by: Mirtazapine (Remeron) 15 mg PO QHS [facility] Last Admin: 01/02/20 21:18 Dose: 15 mg Documented by: Quetiapine Fumarate (Seroquel) 150 mg PO BID [facility] Last Admin: 01/02/20 21:17 Dose: 150 mg Documented by: Valproic Acid (Depakene) 500 mg PO BID [facility] Last Admin: 01/02/20 21:17 Dose: 500 mg Documented by: Results - Results Labs/Vitals: Laboratory Last Values WBC 6.8 K/mm3 (4.5-11.0) 12/28/19 20:35 RBC 4.90 M/mm3 (3.65-5.03) 12/28/19 20:35 Hgb 15.3 gm/dl (11.8-15.2) H 12/28/19 20:35 Hct 44.3 % (35.5-45.6) 12/28/19 20:35 MCV 91 fl (84-94) 12/28/19 20:35 MCH 31 pg (28-32) 12/28/19 20:35 MCHC 35 % (32-34) H 12/28/19 20:35 RDW 14.1 % (13.2-15.2) 12/28/19 20:35 Plt Count 206 K/mm3 (140-440) 12/28/19 20:35 Lymph % (Auto) 31.6 % (13.4-35.0) 12/28/19 20:35 [place] % (Auto) 11.7 % (0.0-7.3) H 12/28/19 20:35 Eos % (Auto) 2.6 % (0.0-4.3) 12/28/19 20:35 Baso % (Auto) 1.0 % (0.0-1.8) 12/28/19 20:35 Lymph # (Auto) 2.1 K/mm3 (1.2-5.4) 12/28/19 20:35 [place] # (Auto) 0.8 K/mm3 (0.0-0.8) 12/28/19 20:35 Eos # (Auto) 0.2 K/mm3 (0.0-0.4) 12/28/19 20:35 Baso # (Auto) 0.1 K/mm3 (0.0-0.1) 12/28/19 20:35 Seg Neutrophils % 53.1 % (40.0-70.0) 12/28/19 20:35 Seg Neutrophils # 3.6 K/mm3 (1.8-7.7) 12/28/19 20:35 Sodium 140 mmol/L (137-145) 12/28/19 20:35 Potassium 3.7 mmol/L (3.6-5.0) 12/28/19 20:35 Chloride 103.0 mmol/L (98-107) 12/28/19 20:35 Carbon Dioxide 23 mmol/L (22-30) 12/28/19 20:35 Anion Gap 18 mmol/L 12/28/19 20:35 BUN 24 mg/dL (9-20) H 12/28/19 20:35 Creatinine 1.1 mg/dL (0.8-1.3) 12/28/19 20:35 Estimated GFR > 60 ml/min 12/28/19 20:35 BUN/Creatinine Ratio 22 % 12/28/19 20:35 Glucose 119 mg/dL (75-100) H 12/28/19 20:35 POC Glucose 118 (70-105) H 12/28/19 17:05 Hemoglobin A1c 6.2 % (4-6) H 12/28/19 20:35 Calcium 9.3 mg/dL (8.4-10.2) 12/28/19 20:35 Total Bilirubin 0.70 mg/dL (0.1-1.2) 12/28/19 20:35 AST 40 units/L (5-40) 12/28/19 20:35 ALT 43 units/L (7-56) 12/28/19 20:35 Alkaline Phosphatase 65 units/L (35-129) 12/28/19 20:35 Total Protein 7.4 g/dL (6.3-8.2) 12/28/19 20:35 Albumin 4.5 g/dL (3.9-5) 12/28/19 20:35 Albumin/Globulin Ratio 1.6 % 12/28/19 20:35 Triglycerides 105 mg/dL (2-149) 12/28/19 20:35 Cholesterol 203 mg/dL (50-199) H 12/28/19 20:35 LDL Cholesterol Direct 142 mg/dL (50-130) H 12/28/19 20:35 HDL Cholesterol 56 mg/dL (40-59) 12/28/19 20:35 Cholesterol/HDL Ratio 3.62 % 12/28/19 20:35 TSH 3.710 mlU/mL (0.270-4.200) 12/28/19 20:35 Last Vital Signs Temp 97.7 F 01/02/20 20:05 Pulse 87 01/02/20 20:05 Resp 16 01/02/20 20:05 BP 130/78 01/02/20 20:05 Pulse Ox 94 01/02/20 20:05
[2020-01-03] MEDS: QUEtiapine 100 MG TAB PO SCH ×2 (12:44→21:08)
[2020-01-03] MEDS: OMEGA-3 FATTY ACIDS/FISH OIL 1 GRAM CAP PO SCH ×2 (12:45→21:08)
[2020-01-03] MEDS: VALPROIC ACID 250 MG CAP PO SCH ×2 (12:46→21:08)
[2020-01-03] MEDS: MELATONIN 5 MG TAB PO SCH (21:08)
[2020-01-03] MEDS: MIRTAZAPINE 15 MG TAB PO SCH (21:08)
--- NOTE | 2020-01-04 09:01 | Progress Note ---
Subjective Date of service: 01/04/20 Principal diagnosis: Dementia w/Behavioral Disturbance Subjective Comment: During my interview with the patient this morning, he is lying in bed. He is staring, and nonsensical. When calling his name he states "it's just a name." When asking the patient how he was feeling, he replies "not sure." He is pointing in the air. When asked if he slept well, he says "I've been sleeping most of the time." When asking the patient about any hallucinations or thoughts of SI/HI. He just looks at me with a blank stare. Reason to continue inpatient psychiatric hospitalization: The patient is improving. Valproate level ordered today, once resulted will adjust depakote based on level. Will continue to treat and observe for effectiveness of medication. REVIEW OF SYSTEMS ROS cannot be reliably obtained from the patient due to his confusion MENTAL STATUS EXAMINATION General Appearance and Behavior: Age appropriate, good hygiene, wearing appropriate clothes, fair eye contact, cooperative polite with questioning. Cooperation: Uncooperative Psychomotor Behavior: unremarkable and within normal limits Mood: better Affect and affective range: flat Thought Process: Impaired Thought Content: Illogical, Speech: Normal volume, Regular rate and rhythm, Suicidal Ideation: Denies SI Homicidal Ideation: HI Impulse Control: Impaired Insight and Judgment: Impaired Memory: impaired Attention: Divided attention impaired Orientation: Alert Assessment and Plan (1) Dementia with Behavioral Disturbance Current Visit: Yes Status: Acute Treatment Plan Patient admitted for inpatient psychiatric evaluation, medication adjustment and close monitoring The patient's behavior, mood, sleep and appetite will be closely monitored. Patient enrolled in individual and group therapeutic sessions and encouraged to attend. Patient provided with a safe and structured environment. Patient's physical health needs will be addressed by the Hospitalist. Hospitalist Consulted Labs including CBC, CMP, Lipid profile and Hemoglobin A1C levels ordered for baseline reference Valproate level 01/04/20 Social Assessment will be completed and the Workforce Planning Analyst will work with patient and family to ensure a suitable and safe disposition Medication adjustment will be made as clinically indicated Usual Wellness Mu-Ism/Preservation: - Start Trazodone 50 mg po QHS & 50 mg po QHS PRN between 10 PM & 2 AM for insomnia - Start Melatonin 5 mg po QHS to promote circadian rhythm - Start [place]-3 for brain health, reduce impulsivity, and as adjunctive treatment for mood disorder, continue upon discharge given overall benefits. - Start B1 prophylaxis with 200 mg po for 5 days The patient agreed on the treatment plan, understood the risk, benefit, alternative treatment, potential consequence of no treatment, and gave informed consent. Estimated days: 2 Post hospital care: primary care provider, psychiatric provider Medications and Allergies Allergies Allergy/AdvReac Type Severity Reaction Status Date / Time No Known Allergies Allergy Unverified 12/28/19 13:41 Home Medications Medication Instructions Recorded Confirmed Last Taken Type B Complex W/Vitamin C 1 cap PO DAILY 12/28/19 12/31/19 Unknown History Isoniazid 300 mg PO DAILY 12/28/19 12/31/19 Unknown History Pyridoxine HCl (Vitamin B6) 100 mg PO HS 12/28/19 12/31/19 Unknown History [Vitamin B-6 200mg TAB ER] QUEtiapine [SEROquel] 25 mg PO HS 12/28/19 12/31/19 Unknown History traZODone [Desyrel] 100 mg PO QHS 12/28/19 12/31/19 Unknown History Active Meds: Active Medications Fish Oil (Fish Oil) 2,000 mg PO BID [facility] Last Admin: 01/03/20 21:08 Dose: 2,000 mg Documented by: Haloperidol Lactate (Haldol) 5 mg IM ONCE PRN PRN Reason: Agitation Lorazepam (Ativan) 2 mg IM Q4HR PRN PRN Reason: Agitation Melatonin (Melatonin) 5 mg PO QHS [facility] Last Admin: 01/03/20 21:08 Dose: 5 mg Documented by: Mirtazapine (Remeron) 15 mg PO QHS [facility] Last Admin: 01/03/20 21:08 Dose: 15 mg Documented by: Quetiapine Fumarate (Seroquel) 150 mg PO BID [facility] Last Admin: 01/03/20 21:08 Dose: 150 mg Documented by: Valproic Acid (Depakene) 500 mg PO BID [facility] Last Admin: 01/03/20 21:08 Dose: 500 mg Documented by: Results - Results Labs/Vitals: Laboratory Last Values WBC 6.8 K/mm3 (4.5-11.0) 12/28/19 20:35 RBC 4.90 M/mm3 (3.65-5.03) 12/28/19 20:35 Hgb 15.3 gm/dl (11.8-15.2) H 12/28/19 20:35 Hct 44.3 % (35.5-45.6) 12/28/19 20:35 MCV 91 fl (84-94) 12/28/19 20:35 MCH 31 pg (28-32) 12/28/19 20:35 MCHC 35 % (32-34) H 12/28/19 20:35 RDW 14.1 % (13.2-15.2) 12/28/19 20:35 Plt Count 206 K/mm3 (140-440) 12/28/19 20:35 Lymph % (Auto) 31.6 % (13.4-35.0) 12/28/19 20:35 [place] % (Auto) 11.7 % (0.0-7.3) H 12/28/19 20:35 Eos % (Auto) 2.6 % (0.0-4.3) 12/28/19 20:35 Baso % (Auto) 1.0 % (0.0-1.8) 12/28/19 20:35 Lymph # (Auto) 2.1 K/mm3 (1.2-5.4) 12/28/19 20:35 [place] # (Auto) 0.8 K/mm3 (0.0-0.8) 12/28/19 20:35 Eos # (Auto) 0.2 K/mm3 (0.0-0.4) 12/28/19 20:35 Baso # (Auto) 0.1 K/mm3 (0.0-0.1) 12/28/19 20:35 Seg Neutrophils % 53.1 % (40.0-70.0) 12/28/19 20:35 Seg Neutrophils # 3.6 K/mm3 (1.8-7.7) 12/28/19 20:35 Sodium 140 mmol/L (137-145) 12/28/19 20:35 Potassium 3.7 mmol/L (3.6-5.0) 12/28/19 20:35 Chloride 103.0 mmol/L (98-107) 12/28/19 20:35 Carbon Dioxide 23 mmol/L (22-30) 12/28/19 20:35 Anion Gap 18 mmol/L 12/28/19 20:35 BUN 24 mg/dL (9-20) H 12/28/19 20:35 Creatinine 1.1 mg/dL (0.8-1.3) 12/28/19 20:35 Estimated GFR > 60 ml/min 12/28/19 20:35 BUN/Creatinine Ratio 22 % 12/28/19 20:35 Glucose 119 mg/dL (75-100) H 12/28/19 20:35 POC Glucose 118 (70-105) H 12/28/19 17:05 Hemoglobin A1c 6.2 % (4-6) H 12/28/19 20:35 Calcium 9.3 mg/dL (8.4-10.2) 12/28/19 20:35 Total Bilirubin 0.70 mg/dL (0.1-1.2) 12/28/19 20:35 AST 40 units/L (5-40) 12/28/19 20:35 ALT 43 units/L (7-56) 12/28/19 20:35 Alkaline Phosphatase 65 units/L (35-129) 12/28/19 20:35 Total Protein 7.4 g/dL (6.3-8.2) 12/28/19 20:35 Albumin 4.5 g/dL (3.9-5) 12/28/19 20:35 Albumin/Globulin Ratio 1.6 % 12/28/19 20:35 Triglycerides 105 mg/dL (2-149) 12/28/19 20:35 Cholesterol 203 mg/dL (50-199) H 12/28/19 20:35 LDL Cholesterol Direct 142 mg/dL (50-130) H 12/28/19 20:35 HDL Cholesterol 56 mg/dL (40-59) 12/28/19 20:35 Cholesterol/HDL Ratio 3.62 % 12/28/19 20:35 TSH 3.710 mlU/mL (0.270-4.200) 12/28/19 20:35 Last Vital Signs Temp 98.7 F 01/04/20 07:30 Pulse 51 L 01/04/20 07:30 Resp 18 01/04/20 07:30 BP 127/73 01/04/20 07:30 Pulse Ox 96 01/04/20 07:30
[2020-01-04] MEDS: QUEtiapine 100 MG TAB PO SCH ×2 (09:56→22:20)
[2020-01-04] MEDS: VALPROIC ACID 250 MG CAP PO SCH ×2 (09:57→22:20)
[2020-01-04] MEDS: OMEGA-3 FATTY ACIDS/FISH OIL 1 GRAM CAP PO SCH ×2 (09:57→22:20)
[2020-01-04] MEDS: MELATONIN 5 MG TAB PO SCH (22:19)
[2020-01-04] MEDS: MIRTAZAPINE 15 MG TAB PO SCH (22:21)
[2020-01-05] MEDS ORDERED: VALPROIC ACID 250 MG CAP PO ONE (09:59)
[2020-01-05] MEDS ORDERED: OMEGA-3 FATTY ACIDS/FISH OIL 1 GRAM CAP PO ONE (09:59)
[2020-01-05] MEDS ORDERED: QUEtiapine 100 MG TAB ONE (09:59)
[2020-01-05] MEDS: OMEGA-3 FATTY ACIDS/FISH OIL 1 GRAM CAP PO SCH ×2 (10:07→21:10)
[2020-01-05] MEDS: QUEtiapine 100 MG TAB PO SCH ×2 (10:08→21:10)
--- NOTE | 2020-01-05 18:25 | Progress Note ---
Subjective Date of service: 01/05/20 Principal diagnosis: Dementia w/Behavioral Disturbance Subjective Comment: During my interview with the patient this morning, he is lying in bed. He is confused. He says he's "doing okay, just tired." He denies SI/HI. When asked about hallucinations, the patient starts talking about his " is asleep.) Reason to continue inpatient psychiatric hospitalization: The patient is improving. Valproate level ordered today, once resulted will adjust depakote based on level. Will continue to treat and observe for effectiveness of medication. REVIEW OF SYSTEMS ROS cannot be reliably obtained from the patient due to his confusion MENTAL STATUS EXAMINATION General Appearance and Behavior: Age appropriate, good hygiene, wearing appropriate clothes, fair eye contact, cooperative polite with questioning. Psychomotor Behavior: unremarkable and within normal limits Mood: "okay, just tired" Affect and affective range: Congruent with stated mood Thought Process: Impaired Thought Content: Illogical Speech: Normal volume, Regular rate and rhythm, Suicidal Ideation: Denies SI Homicidal Ideation: HI Impulse Control: Impaired Insight and Judgment: Impaired Memory: impaired Attention: Divided attention impaired Orientation: Alert Assessment and Plan (1) Dementia with Behavioral Disturbance Current Visit: Yes Status: Acute Treatment Plan Patient admitted for inpatient psychiatric evaluation, medication adjustment and close monitoring The patient's behavior, mood, sleep and appetite will be closely monitored. Patient enrolled in individual and group therapeutic sessions and encouraged to attend. Patient provided with a safe and structured environment. Patient's physical health needs will be addressed by the Hospitalist. Hospitalist Consulted Labs including CBC, CMP, Lipid profile and Hemoglobin A1C levels ordered for baseline reference Valproate level 52.2 Social Assessment will be completed and the Supervisor Network Control Operators will work with patient and family to ensure a suitable and safe disposition Medication adjustment will be made as clinically indicated No medicatioin changes Usual Wellness Islam/Preservation: - Start Trazodone 50 mg po QHS & 50 mg po QHS PRN between 10 PM & 2 AM for insomnia - Start Melatonin 5 mg po QHS to promote circadian rhythm - Start [place]-3 for brain health, reduce impulsivity, and as adjunctive treatment for mood disorder, continue upon discharge given overall benefits. - Start B1 prophylaxis with 200 mg po for 5 days The patient agreed on the treatment plan, understood the risk, benefit, alternative treatment, potential consequence of no treatment, and gave informed consent. Estimated days: 2 Post hospital care: primary care provider, psychiatric provider Medications and Allergies Allergies Allergy/AdvReac Type Severity Reaction Status Date / Time No Known Allergies Allergy Unverified 12/28/19 13:41 Home Medications Medication Instructions Recorded Confirmed Last Taken Type B Complex W/Vitamin C 1 cap PO DAILY 12/28/19 12/31/19 Unknown History Isoniazid 300 mg PO DAILY 12/28/19 12/31/19 Unknown History Pyridoxine HCl (Vitamin B6) 100 mg PO HS 12/28/19 12/31/19 Unknown History [Vitamin B-6 200mg TAB ER] QUEtiapine [SEROquel] 25 mg PO HS 12/28/19 12/31/19 Unknown History traZODone [Desyrel] 100 mg PO QHS 12/28/19 12/31/19 Unknown History Active Meds: Active Medications Fish Oil (Fish Oil) 2,000 mg PO BID [facility] Last Admin: 01/04/20 22:20 Dose: 2,000 mg Documented by: Haloperidol Lactate (Haldol) 5 mg IM ONCE PRN PRN Reason: Agitation Lorazepam (Ativan) 2 mg IM Q4HR PRN PRN Reason: Agitation Melatonin (Melatonin) 5 mg PO QHS [facility] Last Admin: 01/04/20 22:19 Dose: 5 mg Documented by: Mirtazapine (Remeron) 15 mg PO QHS [facility] Last Admin: 01/04/20 22:21 Dose: 15 mg Documented by: Quetiapine Fumarate (Seroquel) 150 mg PO BID [facility] Last Admin: 01/04/20 22:20 Dose: 150 mg Documented by: Valproic Acid (Depakene) 500 mg PO BID [facility] Last Admin: 01/04/20 22:20 Dose: 500 mg Documented by: Results - Results Labs/Vitals: Laboratory Last Values WBC 6.8 K/mm3 (4.5-11.0) 12/28/19 20:35 RBC 4.90 M/mm3 (3.65-5.03) 12/28/19 20:35 Hgb 15.3 gm/dl (11.8-15.2) H 12/28/19 20:35 Hct 44.3 % (35.5-45.6) 12/28/19 20:35 MCV 91 fl (84-94) 12/28/19 20:35 MCH 31 pg (28-32) 12/28/19 20:35 MCHC 35 % (32-34) H 12/28/19 20:35 RDW 14.1 % (13.2-15.2) 12/28/19 20:35 Plt Count 206 K/mm3 (140-440) 12/28/19 20:35 Lymph % (Auto) 31.6 % (13.4-35.0) 12/28/19 20:35 [place] % (Auto) 11.7 % (0.0-7.3) H 12/28/19 20:35 Eos % (Auto) 2.6 % (0.0-4.3) 12/28/19 20:35 Baso % (Auto) 1.0 % (0.0-1.8) 12/28/19 20:35 Lymph # (Auto) 2.1 K/mm3 (1.2-5.4) 12/28/19 20:35 [place] # (Auto) 0.8 K/mm3 (0.0-0.8) 12/28/19 20:35 Eos # (Auto) 0.2 K/mm3 (0.0-0.4) 12/28/19 20:35 Baso # (Auto) 0.1 K/mm3 (0.0-0.1) 12/28/19 20:35 Seg Neutrophils % 53.1 % (40.0-70.0) 12/28/19 20:35 Seg Neutrophils # 3.6 K/mm3 (1.8-7.7) 12/28/19 20:35 Sodium 140 mmol/L (137-145) 12/28/19 20:35 Potassium 3.7 mmol/L (3.6-5.0) 12/28/19 20:35 Chloride 103.0 mmol/L (98-107) 12/28/19 20:35 Carbon Dioxide 23 mmol/L (22-30) 12/28/19 20:35 Anion Gap 18 mmol/L 12/28/19 20:35 BUN 24 mg/dL (9-20) H 12/28/19 20:35 Creatinine 1.1 mg/dL (0.8-1.3) 12/28/19 20:35 Estimated GFR > 60 ml/min 12/28/19 20:35 BUN/Creatinine Ratio 22 % 12/28/19 20:35 Glucose 119 mg/dL (75-100) H 12/28/19 20:35 POC Glucose 118 (70-105) H 12/28/19 17:05 Hemoglobin A1c 6.2 % (4-6) H 12/28/19 20:35 Calcium 9.3 mg/dL (8.4-10.2) 12/28/19 20:35 Total Bilirubin 0.70 mg/dL (0.1-1.2) 12/28/19 20:35 AST 40 units/L (5-40) 12/28/19 20:35 ALT 43 units/L (7-56) 12/28/19 20:35 Alkaline Phosphatase 65 units/L (35-129) 12/28/19 20:35 Total Protein 7.4 g/dL (6.3-8.2) 12/28/19 20:35 Albumin 4.5 g/dL (3.9-5) 12/28/19 20:35 Albumin/Globulin Ratio 1.6 % 12/28/19 20:35 Triglycerides 105 mg/dL (2-149) 12/28/19 20:35 Cholesterol 203 mg/dL (50-199) H 12/28/19 20:35 LDL Cholesterol Direct 142 mg/dL (50-130) H 12/28/19 20:35 HDL Cholesterol 56 mg/dL (40-59) 12/28/19 20:35 Cholesterol/HDL Ratio 3.62 % 12/28/19 20:35 TSH 3.710 mlU/mL (0.270-4.200) 12/28/19 20:35 Valproic Acid 52.2 ug/mL (50-100) 01/04/20 09:06 Last Vital Signs Temp 97.3 F L 01/04/20 19:32 Pulse 91 H 01/04/20 19:32 Resp 20 01/04/20 19:32 BP 124/80 01/04/20 19:32 Pulse Ox 95 01/04/20 19:32
[2020-01-05] MEDS: VALPROIC ACID 250 MG CAP PO SCH ×2 (20:50→21:13)
[2020-01-05] MEDS: MELATONIN 5 MG TAB PO SCH (21:10)
[2020-01-05] MEDS: MIRTAZAPINE 15 MG TAB PO SCH (21:10)
[2020-01-05 22:14] VITALS: BP 131/85
--- NOTE | 2020-01-06 09:23 | Discharge Summary ---
Providers - Providers Date of Admission: 12/28/19 16:42 Date of discharge: 01/06/20 Attending physician: ANITA HUMPHRIES MD 12/28/19 13:37 Consult to Physician [CONS] Routine Comment: Consulting Provider: DAYTON POWELL Physician Instructions: Reason For Exam: Medical Management Primary care physician: DUMPER Hospitalization Reason for admission: behavioral disturbances Admitting Diagnosis: F02.81 - DEMENTIA IN OTH DISEASES CLASSD ELSWHR W BEHAVIORAL DISTURB Condition: Stable Hospital course: The patient was provided inpatient psychiatric treatment with safe and supportive care, medication adjustment, adverse effect monitoring, medical evaluations, medical treatments, assessment and psycho-education. The patient's mood, cognition, behavior, moral support are improved and stabilized. St the time of discharge, the patient had no endangering behavior and no debilitating adverse effects. The patient agreed on potential consequences of no treatment and gave informed consent. Disposition: - TO HOME OR SELFCARE Time spent for discharge: 40 Allergies/Adverse Reactions: Allergies No Known Allergies Allergy (Unverified 12/28/19 13:41) Vital Signs: Last Vital Signs Temp 97.8 F 01/05/20 20:07 Pulse 87 01/05/20 20:07 Resp 20 01/05/20 20:07 BP 131/85 01/05/20 20:07 Pulse Ox 97 01/05/20 22:00 Last Lab: Laboratory Last Values WBC 6.8 K/mm3 (4.5-11.0) 12/28/19 20:35 RBC 4.90 M/mm3 (3.65-5.03) 12/28/19 20:35 Hgb 15.3 gm/dl (11.8-15.2) H 12/28/19 20:35 Hct 44.3 % (35.5-45.6) 12/28/19 20:35 MCV 91 fl (84-94) 12/28/19 20:35 MCH 31 pg (28-32) 12/28/19 20:35 MCHC 35 % (32-34) H 12/28/19 20:35 RDW 14.1 % (13.2-15.2) 12/28/19 20:35 Plt Count 206 K/mm3 (140-440) 12/28/19 20:35 Lymph % (Auto) 31.6 % (13.4-35.0) 12/28/19 20:35 [place] % (Auto) 11.7 % (0.0-7.3) H 12/28/19 20:35 Eos % (Auto) 2.6 % (0.0-4.3) 12/28/19 20:35 Baso % (Auto) 1.0 % (0.0-1.8) 12/28/19 20:35 Lymph # (Auto) 2.1 K/mm3 (1.2-5.4) 12/28/19 20:35 [place] # (Auto) 0.8 K/mm3 (0.0-0.8) 12/28/19 20:35 Eos # (Auto) 0.2 K/mm3 (0.0-0.4) 12/28/19 20:35 Baso # (Auto) 0.1 K/mm3 (0.0-0.1) 12/28/19 20:35 Seg Neutrophils % 53.1 % (40.0-70.0) 12/28/19 20:35 Seg Neutrophils # 3.6 K/mm3 (1.8-7.7) 12/28/19 20:35 Sodium 140 mmol/L (137-145) 12/28/19 20:35 Potassium 3.7 mmol/L (3.6-5.0) 12/28/19 20:35 Chloride 103.0 mmol/L (98-107) 12/28/19 20:35 Carbon Dioxide 23 mmol/L (22-30) 12/28/19 20:35 Anion Gap 18 mmol/L 12/28/19 20:35 BUN 24 mg/dL (9-20) H 12/28/19 20:35 Creatinine 1.1 mg/dL (0.8-1.3) 12/28/19 20:35 Estimated GFR > 60 ml/min 12/28/19 20:35 BUN/Creatinine Ratio 22 % 12/28/19 20:35 Glucose 119 mg/dL (75-100) H 12/28/19 20:35 POC Glucose 118 (70-105) H 12/28/19 17:05 Hemoglobin A1c 6.2 % (4-6) H 12/28/19 20:35 Calcium 9.3 mg/dL (8.4-10.2) 12/28/19 20:35 Total Bilirubin 0.70 mg/dL (0.1-1.2) 12/28/19 20:35 AST 40 units/L (5-40) 12/28/19 20:35 ALT 43 units/L (7-56) 12/28/19 20:35 Alkaline Phosphatase 65 units/L (35-129) 12/28/19 20:35 Total Protein 7.4 g/dL (6.3-8.2) 12/28/19 20:35 Albumin 4.5 g/dL (3.9-5) 12/28/19 20:35 Albumin/Globulin Ratio 1.6 % 12/28/19 20:35 Triglycerides 105 mg/dL (2-149) 12/28/19 20:35 Cholesterol 203 mg/dL (50-199) H 12/28/19 20:35 LDL Cholesterol Direct 142 mg/dL (50-130) H 12/28/19 20:35 HDL Cholesterol 56 mg/dL (40-59) 12/28/19 20:35 Cholesterol/HDL Ratio 3.62 % 12/28/19 20:35 TSH 3.710 mlU/mL (0.270-4.200) 12/28/19 20:35 Valproic Acid 52.2 ug/mL (50-100) 01/04/20 09:06 Core Measure Documentation - Palliative Care Palliative Care/ Comfort Measures: Not Applicable - Core Measures Any of the following diagnoses?: none Exam - Constitutional Vitals: Temp Pulse Resp BP Pulse Ox 97.8 F 87 20 131/85 97 01/05/20 20:07 01/05/20 20:07 01/05/20 20:07 01/05/20 20:07 01/05/20 22:00 General appearance: Present: no acute distress - EENT Eyes: Present: PERRL, EOM intact ENT: hearing intact, clear oral mucosa - Neck Neck: Present: supple, normal ROM - Respiratory Respiratory effort: normal Plan Activity: advance as tolerated Weight Bearing Status: Weight Bear as Tolerated Care Plan Goals: maintain good and stable mental health Plan of Treatment: The patient should be compliant with medications, not to use drugs, and not to drink alcohol. The patient understands that if suicidal ideas, homicidal ideas or any endangering feeling arise, the patient should seek assistance including, but not limited to crisis hotline, and emergency room. Health Concerns: cerebral atherosclerosis Assessment: Dementia w/Behavioral Disturbances Follow up with: PRIMARY CARE, [Primary Care Provider] - 7 Days Prescriptions: Melatonin [Melatonin 5MG TAB] 5 mg PO QHS #30 tablet Mirtazapine [Remeron 15mg TAB] 15 mg PO QHS #30 tablet Valproic Acid [Depakene] 500 mg PO BID #60 capsule [place]-3 Fatty Acids/Fish Oil [Fish Oil] 2,000 mg PO BID #120 capsule QUEtiapine [SEROquel] 150 mg PO BID #60 tablet
[2020-01-06] MEDS: VALPROIC ACID 250 MG CAP PO SCH (10:07)
[2020-01-06] MEDS: OMEGA-3 FATTY ACIDS/FISH OIL 1 GRAM CAP PO SCH (10:07)
[2020-01-06] MEDS: QUEtiapine 100 MG TAB PO SCH (10:08)
--- NOTE | 2020-01-06 17:56 | XRay Report ---
CHEST 1 VIEW 01/05/2020 1:46 PM INDICATION / CLINICAL INFORMATION: PROTOCOL FOR PLACEMENT, TB CHECK. COMPARISON: None available. FINDINGS: SUPPORT DEVICES: None. HEART / MEDIASTINUM: No significant abnormality. LUNGS / PLEURA: No significant pulmonary or pleural abnormality. No pneumothorax. ADDITIONAL FINDINGS: No significant additional findings. IMPRESSION: 1. No acute findings. No radiographic evidence of pulmonary tuberculosis. Signer Name: Yemi Ramirez MD Signed: 01/05/2020 3:23 PM Workstation Name: [id number]
--- NOTE | 2020-04-01 12:10 | Progress Note ---
Assessment and Plan - Patient Problems (1) Vascular dementia with behavioral disturbance Status: Acute Plan to address problem: Verbal prompting, verbal redirection, benzodiazepine therapy as clinically indicated, supportive care. (2) Cerebral atherosclerosis Status: Acute Plan to address problem: Supportive care, continue medical management History Interval history: 74 YO Male with Cerebral Atherosclerosis, Vascular Dementia with Behavioral disturbance admitted to [facility] for Psychiatric stabilization. No reported nursing events. Pt is pleasantly confused. No reports of pain. Hospitalist Physical - Constitutional Vitals: Temp Pulse Resp BP Pulse Ox 97.8 F 87 20 131/85 97 01/05/20 20:07 01/05/20 20:07 01/05/20 20:07 01/05/20 20:07 01/05/20 22:00 General appearance: Present: no acute distress, well-nourished - EENT Eyes: Present: PERRL ENT: hearing intact - Neck Neck: Present: supple - Respiratory Respiratory effort: normal Respiratory: bilateral: CTA - Cardiovascular Rhythm: regular Heart Sounds: Present: S1 & S2 - Extremities Extremities: no ischemia Peripheral Pulses: within normal limits - Abdominal General gastrointestinal: soft, non-tender, non-distended - Integumentary Integumentary: Present: clear, dry - Psychiatric Psychiatric: appropriate mood/affect, cooperative - Neurologic Neurologic: CNII-XII intact Results - Labs CBC & Chem 7: 12/28/19 20:35 12/28/19 20:35 Labs: Laboratory Last Values WBC 6.8 K/mm3 (4.5-11.0) 12/28/19 20:35 RBC 4.90 M/mm3 (3.65-5.03) 12/28/19 20:35 Hgb 15.3 gm/dl (11.8-15.2) H 12/28/19 20:35 Hct 44.3 % (35.5-45.6) 12/28/19 20:35 MCV 91 fl (84-94) 12/28/19 20:35 MCH 31 pg (28-32) 12/28/19 20:35 MCHC 35 % (32-34) H 12/28/19 20:35 RDW 14.1 % (13.2-15.2) 12/28/19 20:35 Plt Count 206 K/mm3 (140-440) 12/28/19 20:35 Lymph % (Auto) 31.6 % (13.4-35.0) 12/28/19 20:35 [place] % (Auto) 11.7 % (0.0-7.3) H 12/28/19 20:35 Eos % (Auto) 2.6 % (0.0-4.3) 12/28/19 20:35 Baso % (Auto) 1.0 % (0.0-1.8) 12/28/19 20:35 Lymph # (Auto) 2.1 K/mm3 (1.2-5.4) 12/28/19 20:35 [place] # (Auto) 0.8 K/mm3 (0.0-0.8) 12/28/19 20:35 Eos # (Auto) 0.2 K/mm3 (0.0-0.4) 12/28/19 20:35 Baso # (Auto) 0.1 K/mm3 (0.0-0.1) 12/28/19 20:35 Seg Neutrophils % 53.1 % (40.0-70.0) 12/28/19 20:35 Seg Neutrophils # 3.6 K/mm3 (1.8-7.7) 12/28/19 20:35 Sodium 140 mmol/L (137-145) 12/28/19 20:35 Potassium 3.7 mmol/L (3.6-5.0) 12/28/19 20:35 Chloride 103.0 mmol/L (98-107) 12/28/19 20:35 Carbon Dioxide 23 mmol/L (22-30) 12/28/19 20:35 Anion Gap 18 mmol/L 12/28/19 20:35 BUN 24 mg/dL (9-20) H 12/28/19 20:35 Creatinine 1.1 mg/dL (0.8-1.3) 12/28/19 20:35 Estimated GFR > 60 ml/min 12/28/19 20:35 BUN/Creatinine Ratio 22 % 12/28/19 20:35 Glucose 119 mg/dL (75-100) H 12/28/19 20:35 POC Glucose 118 (70-105) H 12/28/19 17:05 Hemoglobin A1c 6.2 % (4-6) H 12/28/19 20:35 Calcium 9.3 mg/dL (8.4-10.2) 12/28/19 20:35 Total Bilirubin 0.70 mg/dL (0.1-1.2) 12/28/19 20:35 AST 40 units/L (5-40) 12/28/19 20:35 ALT 43 units/L (7-56) 12/28/19 20:35 Alkaline Phosphatase 65 units/L (35-129) 12/28/19 20:35 Total Protein 7.4 g/dL (6.3-8.2) 12/28/19 20:35 Albumin 4.5 g/dL (3.9-5) 12/28/19 20:35 Albumin/Globulin Ratio 1.6 % 12/28/19 20:35 Triglycerides 105 mg/dL (2-149) 12/28/19 20:35 Cholesterol 203 mg/dL (50-199) H 12/28/19 20:35 LDL Cholesterol Direct 142 mg/dL (50-130) H 12/28/19 20:35 HDL Cholesterol 56 mg/dL (40-59) 12/28/19 20:35 Cholesterol/HDL Ratio 3.62 % 12/28/19 20:35 TSH 3.710 mlU/mL (0.270-4.200) 12/28/19 20:35 Valproic Acid 52.2 ug/mL (50-100) 01/04/20 09:06 Coronavirus (PCR) Negative (Negative) 01/05/20 Unknown Johnson/IV: Voiding Method Toilet Nutrition/Malnutrition Assess - Dietary Evaluation Nutrition/Malnutrition Findings: Nutrition Notes Start: 01/04/20 14:02 Freq: Status: Discharge Protocol: Document 01/04/20 14:02 (Rec: 01/04/20 14:03 [id number]) Nutrition Notes Need for Assessment generated from: LOS Initial or Follow up Brief Note Subjective/Other Information Screen for LOS. Pt has 75-100% intakes in chart. Nutrition Intervention Revisit per MD consult or patient Sign Off request:
--- NOTE | 2020-04-01 12:11 | Progress Note ---
Assessment and Plan - Patient Problems (1) Vascular dementia with behavioral disturbance Status: Acute Plan to address problem: Verbal prompting, verbal redirection, benzodiazepine therapy as clinically indicated, supportive care. (2) Cerebral atherosclerosis Status: Acute Plan to address problem: Supportive care, continue medical management History Interval history: 74 YO Male with Cerebral Atherosclerosis, Vascular Dementia with Behavioral disturbance admitted to [facility] for Psychiatric stabilization. No reported nursing events. Pt is pleasantly confused. No reports of pain. Hospitalist Physical - Constitutional Vitals: Temp Pulse Resp BP Pulse Ox 97.8 F 87 20 131/85 97 01/05/20 20:07 01/05/20 20:07 01/05/20 20:07 01/05/20 20:07 01/05/20 22:00 General appearance: Present: no acute distress, well-nourished - EENT Eyes: Present: PERRL, EOM intact ENT: hearing intact - Neck Neck: Present: supple - Respiratory Respiratory effort: normal Respiratory: bilateral: CTA - Cardiovascular Rhythm: regular Heart Sounds: Present: S1 & S2 - Extremities Extremities: no ischemia Peripheral Pulses: within normal limits - Abdominal General gastrointestinal: soft, non-tender, non-distended - Integumentary Integumentary: Present: clear, dry - Psychiatric Psychiatric: cooperative - Neurologic Neurologic: CNII-XII intact Results - Labs CBC & Chem 7: 12/28/19 20:35 12/28/19 20:35 Labs: Laboratory Last Values WBC 6.8 K/mm3 (4.5-11.0) 12/28/19 20:35 RBC 4.90 M/mm3 (3.65-5.03) 12/28/19 20:35 Hgb 15.3 gm/dl (11.8-15.2) H 12/28/19 20:35 Hct 44.3 % (35.5-45.6) 12/28/19 20:35 MCV 91 fl (84-94) 12/28/19 20:35 MCH 31 pg (28-32) 12/28/19 20:35 MCHC 35 % (32-34) H 12/28/19 20:35 RDW 14.1 % (13.2-15.2) 12/28/19 20:35 Plt Count 206 K/mm3 (140-440) 10/19/20 20:35 Lymph % (Auto) 31.6 % (13.4-35.0) 12/28/19 20:35 [place] % (Auto) 11.7 % (0.0-7.3) H 12/28/19 20:35 Eos % (Auto) 2.6 % (0.0-4.3) 12/28/19 20:35 Baso % (Auto) 1.0 % (0.0-1.8) 12/28/19 20:35 Lymph # (Auto) 2.1 K/mm3 (1.2-5.4) 12/28/19 20:35 [place] # (Auto) 0.8 K/mm3 (0.0-0.8) 12/28/19 20:35 Eos # (Auto) 0.2 K/mm3 (0.0-0.4) 12/28/19 20:35 Baso # (Auto) 0.1 K/mm3 (0.0-0.1) 12/28/19 20:35 Seg Neutrophils % 53.1 % (40.0-70.0) 12/28/19 20:35 Seg Neutrophils # 3.6 K/mm3 (1.8-7.7) 12/28/19 20:35 Sodium 140 mmol/L (137-145) 12/28/19 20:35 Potassium 3.7 mmol/L (3.6-5.0) 12/28/19 20:35 Chloride 103.0 mmol/L (98-107) 12/28/19 20:35 Carbon Dioxide 23 mmol/L (22-30) 12/28/19 20:35 Anion Gap 18 mmol/L 12/28/19 20:35 BUN 24 mg/dL (9-20) H 12/28/19 20:35 Creatinine 1.1 mg/dL (0.8-1.3) 12/28/19 20:35 Estimated GFR > 60 ml/min 12/28/19 20:35 BUN/Creatinine Ratio 22 % 12/28/19 20:35 Glucose 119 mg/dL (75-100) H 12/28/19 20:35 POC Glucose 118 (70-105) H 12/28/19 17:05 Hemoglobin A1c 6.2 % (4-6) H 12/28/19 20:35 Calcium 9.3 mg/dL (8.4-10.2) 12/28/19 20:35 Total Bilirubin 0.70 mg/dL (0.1-1.2) 12/28/19 20:35 AST 40 units/L (5-40) 12/28/19 20:35 ALT 43 units/L (7-56) 12/28/19 20:35 Alkaline Phosphatase 65 units/L (35-129) 12/28/19 20:35 Total Protein 7.4 g/dL (6.3-8.2) 12/28/19 20:35 Albumin 4.5 g/dL (3.9-5) 12/28/19 20:35 Albumin/Globulin Ratio 1.6 % 12/28/19 20:35 Triglycerides 105 mg/dL (2-149) 12/28/19 20:35 Cholesterol 203 mg/dL (50-199) H 12/28/19 20:35 LDL Cholesterol Direct 142 mg/dL (50-130) H 12/28/19 20:35 HDL Cholesterol 56 mg/dL (40-59) 12/28/19 20:35 Cholesterol/HDL Ratio 3.62 % 12/28/19 20:35 TSH 3.710 mlU/mL (0.270-4.200) 12/28/19 20:35 Valproic Acid 52.2 ug/mL (50-100) 01/04/20 09:06 Coronavirus (PCR) Negative (Negative) 01/05/20 Unknown Johnson/IV: Voiding Method Toilet Nutrition/Malnutrition Assess - Dietary Evaluation Nutrition/Malnutrition Findings: Nutrition Notes Start: 01/04/20 14:02 Freq: Status: Discharge Protocol: Document 01/04/20 14:02 (Rec: 01/04/20 14:03 [id number]) Nutrition Notes Need for Assessment generated from: LOS Initial or Follow up Brief Note Subjective/Other Information Screen for LOS. Pt has 75-100% intakes in chart. Nutrition Intervention Revisit per MD consult or patient Sign Off request:
--- NOTE | 2020-04-01 12:14 | Progress Note ---
Assessment and Plan - Patient Problems (1) Vascular dementia with behavioral disturbance Status: Acute Plan to address problem: Verbal prompting, verbal redirection, benzodiazepine therapy as clinically indicated, supportive care. (2) Cerebral atherosclerosis Status: Acute Plan to address problem: Supportive care, continue medical management History Interval history: 74 YO Male with Cerebral Atherosclerosis, Vascular Dementia with Behavioral disturbance admitted to [facility] for Psychiatric stabilization. No reported nursing events. Pt is pleasantly confused. No reports of pain. Hospitalist Physical - Constitutional Vitals: Temp Pulse Resp BP Pulse Ox 97.8 F 87 20 131/85 97 01/05/20 20:07 01/05/20 20:07 01/05/20 20:07 01/05/20 20:07 01/05/20 22:00 General appearance: Present: no acute distress, well-nourished - EENT Eyes: Present: PERRL, EOM intact ENT: hearing intact - Neck Neck: Present: supple - Respiratory Respiratory effort: normal Respiratory: bilateral: CTA - Cardiovascular Rhythm: regular Heart Sounds: Present: S1 & S2 - Extremities Extremities: no ischemia Peripheral Pulses: within normal limits - Abdominal General gastrointestinal: soft - Integumentary Integumentary: Present: clear, dry - Psychiatric Psychiatric: cooperative - Neurologic Neurologic: CNII-XII intact Results - Labs CBC & Chem 7: 12/28/19 20:35 12/28/19 20:35 Labs: Laboratory Last Values WBC 6.8 K/mm3 (4.5-11.0) 12/28/19 20:35 RBC 4.90 M/mm3 (3.65-5.03) 12/28/19 20:35 Hgb 15.3 gm/dl (11.8-15.2) H 12/28/19 20:35 Hct 44.3 % (35.5-45.6) 12/28/19 20:35 MCV 91 fl (84-94) 12/28/19 20:35 MCH 31 pg (28-32) 12/28/19 20:35 MCHC 35 % (32-34) H 12/28/19 20:35 RDW 14.1 % (13.2-15.2) 12/28/19 20:35 Plt Count 206 K/mm3 (140-440) 12/28/19 20:35 Lymph % (Auto) 31.6 % (13.4-35.0) 12/28/19 20:35 [place] % (Auto) 11.7 % (0.0-7.3) H 12/28/19 20:35 Eos % (Auto) 2.6 % (0.0-4.3) 12/28/19 20:35 Baso % (Auto) 1.0 % (0.0-1.8) 12/28/19 20:35 Lymph # (Auto) 2.1 K/mm3 (1.2-5.4) 12/28/19 20:35 [place] # (Auto) 0.8 K/mm3 (0.0-0.8) 12/28/19 20:35 Eos # (Auto) 0.2 K/mm3 (0.0-0.4) 12/28/19 20:35 Baso # (Auto) 0.1 K/mm3 (0.0-0.1) 12/28/19 20:35 Seg Neutrophils % 53.1 % (40.0-70.0) 12/28/19 20:35 Seg Neutrophils # 3.6 K/mm3 (1.8-7.7) 12/28/19 20:35 Sodium 140 mmol/L (137-145) 12/28/19 20:35 Potassium 3.7 mmol/L (3.6-5.0) 12/28/19 20:35 Chloride 103.0 mmol/L (98-107) 12/28/19 20:35 Carbon Dioxide 23 mmol/L (22-30) 12/28/19 20:35 Anion Gap 18 mmol/L 12/28/19 20:35 BUN 24 mg/dL (9-20) H 12/28/19 20:35 Creatinine 1.1 mg/dL (0.8-1.3) 12/28/19 20:35 Estimated GFR > 60 ml/min 12/28/19 20:35 BUN/Creatinine Ratio 22 % 12/28/19 20:35 Glucose 119 mg/dL (75-100) H 12/28/19 20:35 POC Glucose 118 (70-105) H 12/28/19 17:05 Hemoglobin A1c 6.2 % (4-6) H 12/28/19 20:35 Calcium 9.3 mg/dL (8.4-10.2) 12/28/19 20:35 Total Bilirubin 0.70 mg/dL (0.1-1.2) 12/28/19 20:35 AST 40 units/L (5-40) 12/28/19 20:35 ALT 43 units/L (7-56) 12/28/19 20:35 Alkaline Phosphatase 65 units/L (35-129) 12/28/19 20:35 Total Protein 7.4 g/dL (6.3-8.2) 12/28/19 20:35 Albumin 4.5 g/dL (3.9-5) 12/28/19 20:35 Albumin/Globulin Ratio 1.6 % 12/28/19 20:35 Triglycerides 105 mg/dL (2-149) 12/28/19 20:35 Cholesterol 203 mg/dL (50-199) H 12/28/19 20:35 LDL Cholesterol Direct 142 mg/dL (50-130) H 12/28/19 20:35 HDL Cholesterol 56 mg/dL (40-59) 12/28/19 20:35 Cholesterol/HDL Ratio 3.62 % 12/28/19 20:35 TSH 3.710 mlU/mL (0.270-4.200) 12/28/19 20:35 Valproic Acid 52.2 ug/mL (50-100) 01/04/20 09:06 Coronavirus (PCR) Negative (Negative) 01/05/20 Unknown Johnson/IV: Voiding Method Toilet Nutrition/Malnutrition Assess - Dietary Evaluation Nutrition/Malnutrition Findings: Nutrition Notes Start: 01/04/20 14:02 Freq: Status: Discharge Protocol: Document 01/04/20 14:02 (Rec: 01/04/20 14:03 [id number]) Nutrition Notes Need for Assessment generated from: LOS Initial or Follow up Brief Note Subjective/Other Information Screen for LOS. Pt has 75-100% intakes in chart. Nutrition Intervention Revisit per MD consult or patient Sign Off request:
--- NOTE | 2020-04-01 12:15 | Progress Note ---
Assessment and Plan - Patient Problems (1) Vascular dementia with behavioral disturbance Status: Acute Plan to address problem: Verbal prompting, verbal redirection, benzodiazepine therapy as clinically indicated, supportive care. (2) Cerebral atherosclerosis Status: Acute Plan to address problem: Supportive care, continue medical management History Interval history: 74 YO Male with Cerebral Atherosclerosis, Vascular Dementia with Behavioral disturbance admitted to [facility] for Psychiatric stabilization. No reported nursing events. Pt is pleasantly confused. No reports of pain. Hospitalist Physical - Constitutional Vitals: Temp Pulse Resp BP Pulse Ox 97.8 F 87 20 131/85 97 01/05/20 20:07 01/05/20 20:07 01/05/20 20:07 01/05/20 20:07 01/05/20 22:00 General appearance: Present: no acute distress, well-nourished - EENT Eyes: Present: PERRL ENT: hearing intact - Neck Neck: Present: supple - Respiratory Respiratory effort: normal Respiratory: bilateral: CTA - Cardiovascular Rhythm: regular Heart Sounds: Present: S1 & S2 - Extremities Extremities: no ischemia Peripheral Pulses: within normal limits - Abdominal General gastrointestinal: soft, non-tender, non-distended Results - Labs CBC & Chem 7: 12/28/19 20:35 12/28/19 20:35 Labs: Laboratory Last Values WBC 6.8 K/mm3 (4.5-11.0) 12/28/19 20:35 RBC 4.90 M/mm3 (3.65-5.03) 12/28/19 20:35 Hgb 15.3 gm/dl (11.8-15.2) H 12/28/19 20:35 Hct 44.3 % (35.5-45.6) 12/28/19 20:35 MCV 91 fl (84-94) 12/28/19 20:35 MCH 31 pg (28-32) 12/28/19 20:35 MCHC 35 % (32-34) H 12/28/19 20:35 RDW 14.1 % (13.2-15.2) 12/28/19 20:35 Plt Count 206 K/mm3 (140-440) 12/28/19 20:35 Lymph % (Auto) 31.6 % (13.4-35.0) 12/28/19 20:35 [place] % (Auto) 11.7 % (0.0-7.3) H 12/28/19 20:35 Eos % (Auto) 2.6 % (0.0-4.3) 12/28/19 20:35 Baso % (Auto) 1.0 % (0.0-1.8) 12/28/19 20:35 Lymph # (Auto) 2.1 K/mm3 (1.2-5.4) 12/28/19 20:35 [place] # (Auto) 0.8 K/mm3 (0.0-0.8) 12/28/19 20:35 Eos # (Auto) 0.2 K/mm3 (0.0-0.4) 12/28/19 20:35 Baso # (Auto) 0.1 K/mm3 (0.0-0.1) 12/28/19 20:35 Seg Neutrophils % 53.1 % (40.0-70.0) 12/28/19 20:35 Seg Neutrophils # 3.6 K/mm3 (1.8-7.7) 12/28/19 20:35 Sodium 140 mmol/L (137-145) 12/28/19 20:35 Potassium 3.7 mmol/L (3.6-5.0) 12/28/19 20:35 Chloride 103.0 mmol/L (98-107) 12/28/19 20:35 Carbon Dioxide 23 mmol/L (22-30) 12/28/19 20:35 Anion Gap 18 mmol/L 12/28/19 20:35 BUN 24 mg/dL (9-20) H 12/28/19 20:35 Creatinine 1.1 mg/dL (0.8-1.3) 12/28/19 20:35 Estimated GFR > 60 ml/min 12/28/19 20:35 BUN/Creatinine Ratio 22 % 12/28/19 20:35 Glucose 119 mg/dL (75-100) H 12/28/19 20:35 POC Glucose 118 (70-105) H 12/28/19 17:05 Hemoglobin A1c 6.2 % (4-6) H 12/28/19 20:35 Calcium 9.3 mg/dL (8.4-10.2) 12/28/19 20:35 Total Bilirubin 0.70 mg/dL (0.1-1.2) 12/28/19 20:35 AST 40 units/L (5-40) 12/28/19 20:35 ALT 43 units/L (7-56) 12/28/19 20:35 Alkaline Phosphatase 65 units/L (35-129) 12/28/19 20:35 Total Protein 7.4 g/dL (6.3-8.2) 12/28/19 20:35 Albumin 4.5 g/dL (3.9-5) 12/28/19 20:35 Albumin/Globulin Ratio 1.6 % 12/28/19 20:35 Triglycerides 105 mg/dL (2-149) 12/28/19 20:35 Cholesterol 203 mg/dL (50-199) H 12/28/19 20:35 LDL Cholesterol Direct 142 mg/dL (50-130) H 12/28/19 20:35 HDL Cholesterol 56 mg/dL (40-59) 12/28/19 20:35 Cholesterol/HDL Ratio 3.62 % 12/28/19 20:35 TSH 3.710 mlU/mL (0.270-4.200) 12/28/19 20:35 Valproic Acid 52.2 ug/mL (50-100) 01/04/20 09:06 Coronavirus (PCR) Negative (Negative) 01/05/20 Unknown Johnson/IV: Voiding Method Toilet Nutrition/Malnutrition Assess - Dietary Evaluation Nutrition/Malnutrition Findings: Nutrition Notes Start: 01/04/20 14:02 Freq: Status: Discharge Protocol: Document 01/04/20 14:02 LM (Rec: 01/04/20 14:03 [id number]) Nutrition Notes Need for Assessment generated from: LOS Initial or Follow up Brief Note Subjective/Other Information Screen for LOS. Pt has 75-100% intakes in chart. Nutrition Intervention Revisit per MD consult or patient Sign Off request:
--- NOTE | 2020-04-01 12:16 | Progress Note ---
Assessment and Plan - Patient Problems (1) Vascular dementia with behavioral disturbance Status: Acute Plan to address problem: Verbal prompting, verbal redirection, benzodiazepine therapy as clinically indicated, supportive care. (2) Cerebral atherosclerosis Status: Acute Plan to address problem: Supportive care, continue medical management History Interval history: 74 YO Male with Cerebral Atherosclerosis, Vascular Dementia with Behavioral disturbance admitted to [facility] for Psychiatric stabilization. No reported nursing events. Pt is pleasantly confused. No reports of pain. Hospitalist Physical - Constitutional Vitals: Temp Pulse Resp BP Pulse Ox 97.8 F 87 20 131/85 97 01/05/20 20:07 01/05/20 20:07 01/05/20 20:07 01/05/20 20:07 01/05/20 22:00 General appearance: Present: no acute distress, well-nourished - EENT Eyes: Present: PERRL ENT: hearing intact - Neck Neck: Present: supple - Respiratory Respiratory: bilateral: CTA - Cardiovascular Rhythm: regular Peripheral Pulses: within normal limits - Abdominal General gastrointestinal: soft, non-distended - Integumentary Integumentary: Present: clear, dry - Psychiatric Psychiatric: cooperative - Neurologic Neurologic: CNII-XII intact Results - Labs CBC & Chem 7: 12/28/19 20:35 12/28/19 20:35 Labs: Laboratory Last Values WBC 6.8 K/mm3 (4.5-11.0) 12/28/19 20:35 RBC 4.90 M/mm3 (3.65-5.03) 12/28/19 20:35 Hgb 15.3 gm/dl (11.8-15.2) H 12/28/19 20:35 Hct 44.3 % (35.5-45.6) 12/28/19 20:35 MCV 91 fl (84-94) 12/28/19 20:35 MCH 31 pg (28-32) 12/28/19 20:35 MCHC 35 % (32-34) H 12/28/19 20:35 RDW 14.1 % (13.2-15.2) 12/28/19 20:35 Plt Count 206 K/mm3 (140-440) 12/28/19 20:35 Lymph % (Auto) 31.6 % (13.4-35.0) 10/19/20 20:35 [place] % (Auto) 11.7 % (0.0-7.3) H 12/28/19 20:35 Eos % (Auto) 2.6 % (0.0-4.3) 12/28/19 20:35 Baso % (Auto) 1.0 % (0.0-1.8) 12/28/19 20:35 Lymph # (Auto) 2.1 K/mm3 (1.2-5.4) 12/28/19 20:35 [place] # (Auto) 0.8 K/mm3 (0.0-0.8) 12/28/19 20:35 Eos # (Auto) 0.2 K/mm3 (0.0-0.4) 12/28/19 20:35 Baso # (Auto) 0.1 K/mm3 (0.0-0.1) 12/28/19 20:35 Seg Neutrophils % 53.1 % (40.0-70.0) 12/28/19 20:35 Seg Neutrophils # 3.6 K/mm3 (1.8-7.7) 12/28/19 20:35 Sodium 140 mmol/L (137-145) 12/28/19 20:35 Potassium 3.7 mmol/L (3.6-5.0) 12/28/19 20:35 Chloride 103.0 mmol/L (98-107) 12/28/19 20:35 Carbon Dioxide 23 mmol/L (22-30) 12/28/19 20:35 Anion Gap 18 mmol/L 12/28/19 20:35 BUN 24 mg/dL (9-20) H 12/28/19 20:35 Creatinine 1.1 mg/dL (0.8-1.3) 12/28/19 20:35 Estimated GFR > 60 ml/min 12/28/19 20:35 BUN/Creatinine Ratio 22 % 12/28/19 20:35 Glucose 119 mg/dL (75-100) H 12/28/19 20:35 POC Glucose 118 (70-105) H 12/28/19 17:05 Hemoglobin A1c 6.2 % (4-6) H 12/28/19 20:35 Calcium 9.3 mg/dL (8.4-10.2) 12/28/19 20:35 Total Bilirubin 0.70 mg/dL (0.1-1.2) 12/28/19 20:35 AST 40 units/L (5-40) 12/28/19 20:35 ALT 43 units/L (7-56) 12/28/19 20:35 Alkaline Phosphatase 65 units/L (35-129) 12/28/19 20:35 Total Protein 7.4 g/dL (6.3-8.2) 12/28/19 20:35 Albumin 4.5 g/dL (3.9-5) 12/28/19 20:35 Albumin/Globulin Ratio 1.6 % 12/28/19 20:35 Triglycerides 105 mg/dL (2-149) 12/28/19 20:35 Cholesterol 203 mg/dL (50-199) H 12/28/19 20:35 LDL Cholesterol Direct 142 mg/dL (50-130) H 12/28/19 20:35 HDL Cholesterol 56 mg/dL (40-59) 12/28/19 20:35 Cholesterol/HDL Ratio 3.62 % 12/28/19 20:35 TSH 3.710 mlU/mL (0.270-4.200) 12/28/19 20:35 Valproic Acid 52.2 ug/mL (50-100) 01/04/20 09:06 Coronavirus (PCR) Negative (Negative) 01/05/20 Unknown Johnson/IV: Voiding Method Toilet Nutrition/Malnutrition Assess - Dietary Evaluation Nutrition/Malnutrition Findings: Nutrition Notes Start: 01/04/20 14:02 Freq: Status: Discharge Protocol: Document 01/04/20 14:02 LM (Rec: 01/04/20 14:03 [email or web address]) Nutrition Notes Need for Assessment generated from: LOS Initial or Follow up Brief Note Subjective/Other Information Screen for LOS. Pt has 75-100% intakes in chart. Nutrition Intervention Revisit per MD consult or patient Sign Off request:
== END 2020-01-06 16:27 | disposition home or self-care (01) | DRG 884 ==
LOC: UNDOADMIN 13:15 → 3A 13:15 → 5A 16:42
PROVIDERS: ADMIT Psychiatry & Neurology Psychiatry; ATTEND Psychiatry & Neurology Psychiatry
DX: F01.51 Vascular dementia, unspecified severity, with behavioral disturbance (principal); F02.81 Dementia in other diseases classified elsewhere, unspecified severity, with behavioral disturbance; I67.2 Cerebral atherosclerosis; G30.9 Alzheimer's disease, unspecified; Z20.828 Contact with and (suspected) exposure to other viral communicable diseases
CPT/HCPCS: 36415; 71045; 80053; 80061; 80164; 82962; 83036; 84443; 85025; G0378; U0003